=== PATIENT | female | born 1980 | race African-American/Black ===

== ENCOUNTER 2017-02-19 12:45 | Inpatient (IN) ==
--- NOTE | 2017-02-19 14:00 | Emergency Department Note ---
Arrival - Arrival Chief Complaint: Extremity Problem Stated Complaint: right leg pain ED Nursing Triage Note: REPORTS RIGHT LEG PAIN SINCE THIS MORNING. DENIES INJURY. DENIES NUMBNESS OR TINGLING. UNABLE TO PALPATER OR DOPPLER RIGHT DORSALIS PEDIS OR RIGHT POSTERIOR TIBIAL PULSE. RIGHT POPLITEAL PULSE AUSULTATED WITH DOPPLER AND RIGHT FOOT COOL TO TOUCH. LEFT DORSALIS PEDIS PULSE PALPABLE AND WARM TO TOUCH. LALA AT BEDSIDE REPORTS PT HAD SYNCOPE EPISODE FOR APPROX TWO SECONDS. PT ALERT AND ORIENTED AT TRIAGE Mode of Arrival: Stretcher Limitations: Altered Mental Status (Current cocaine abuser, currently having some withdrawal symptoms) Source: Patient, Old Records Reviewed, RN Notes Reviewed Time Seen by Provider: 02/19/17 13:18 - History of Present Illness HPI Narrative: 36-year-old black female presents to ED with chief complaint of right leg pain since Friday. Denies injury to the leg. Denies numbness or tingling. Her boyfriend is with her, he states she had a syncopal episode this a.m. for about 30 seconds. She has had one in the past that he knows of about 6 months ago. Patient is crack cocaine addict. Boyfriend states she has been gone for about 3 days, she has been using the cocaine on a heavy basis. Last use was last night. States she is going through some withdrawal symptoms. Patient is alert and oriented 3 at this time. Main complaint is the right leg pain. PCP is Dr. Mcdaniel. Significant previous medical history of hypertension, enlarged heart, insulin-dependent diabetes mellitus. She is poorly compliant with her medications. Date of Last Menstrual Period: 01/24/17 Allergies/Adverse Reactions: Allergies Allergy/AdvReac Type Severity Reaction Status Date / Time sulfamethoxazole Allergy RASH Verified 02/21/16 17:16 [From Bactrim] trimethoprim [From Bactrim] Allergy RASH Verified 02/21/16 17:16 Penicillins AdvReac Mild RASH Verified 02/19/17 12:56 Home Medications: Home Medications Medication Instructions Recorded Confirmed Type Insulin NPH [HumuLIN N] 10 unit SUBCUT BID 07/22/16 11/13/16 History Furosemide Tab [Lasix Tab] 20 mg PO BID DIURETIC #14 tablet 10/16/16 11/13/16 Rx Aspirin Chew Tab 81 mg PO DAILY #30 tablet 11/19/16 Rx Carvedilol [Coreg] 50 mg PO BID #120 tablet 11/19/16 Rx Levofloxacin Tab [Levaquin Tab] 750 mg PO Q48H #8 tablet 11/19/16 Rx amLODIPine [Norvasc] 10 mg PO BID #60 tablet 11/19/16 Rx cloNIDine TAB [Catapres Tab] 0.1 mg PO BID #60 tablet 11/19/16 Rx hydrALAZINE TAB [Apresoline Tab] 100 mg PO TID #90 tablet 11/19/16 Rx Review of System - Review of System 12 point system: reviewed and no additional remarkable complaints except as stated - Review of System Cardiovascular: Present: syncope Musculoskeletal: Present: leg pain Medical,Surgical,& Family Hx - Medical History Cardio: History of: CHF, Hypertension, Cardiovascular Problems (cardiomyopathy) Psychological: History of: Depression (undiagnosed), Psychiatric/Substance Abuse Tx Endocrine: History of: Diabetes Mellitus (IDDM) Rheumatology: History of;: Rheumatoid Arthritis Musculoskeletal: No history of: Amputation Hematology: No history of: Blood Transfusion Reaction Other: No history of: Anesthesia Reactions - Surgical History Cardiac Surgeries: Sugical HX of: Cardiac Catheterization (states done in february) Thoracic Surgeries: Patient denies;: Organ Transplant HEENT Surgeries: Patient denies: Thyroid Surgery Abdominal Surgeries: Patient denies: Abdominal Surgery Reproductive Surgeries: Surgical HX of;: Section, Tubal Ligation Patient denies;: Genitourinary Surgery - Family History Family History: Reports;: Family Diabetes (grandmother), Family Hypertension - Social History Smoking Status: Former smoker Frequency of Alcohol Use: None Type of Drug Use: Cocaine Exam Physical Examination: Exam - General General appearance: Alert, writhing in bed due to leg pain, appears to be in some drug withdrawal. - Head Head exam: Present: atraumatic, normocephalic - Eye Eye exam: Present: normal appearance, PERRL, normal ocular movement - ENT ENT exam: Present: Mucous membranes moist - Neck Neck exam: Present: normal inspection, full ROM - Chest Chest inspection: Present: normal inspection, symmetric chest wall rise - Respiratory Respiratory exam: Present: normal lung sounds bilaterally. Absent: rales, rhonchi, wheezes - Cardiovascular Cardiovascular exam: Present: regular rate, normal rhythm, normal heart sounds, no murmur - Extremities Exam Extremities exam: Present: Right lower extremity cool to touch, pulses not palpated in foot, pulses not auscultated with Doppler. Popliteal pulse is present. - Musculoskeletal: Present: Right leg pain, full range of motion. - Neurological Exam Neurological exam: Present: alert, oriented X3, normal coordination absent: motor sensory deficit - Psychiatric Psychiatric exam: Present: normal affect, normal mood, oriented to time, oriented to person, oriented to place, speech is normal, memory intact - Skin Skin exam: Present: warm, dry, intact, no rash, no growths, no abnormal pigmentation observed Vital Signs: Vital Signs Temperature 98.4 F 02/19/17 12:48 Pulse Rate 76 02/19/17 12:48 Respiratory Rate 20 02/19/17 12:48 Blood Pressure 124/87 02/19/17 12:48 O2 Sat by Pulse Oximetry 100 02/19/17 12:48 Course Course Narrative: 1615: Ultrasound here and getting arterial ultrasound. Unable to do CTA due to elevated creatinine. - Consultations Time: 14:40 (Dr. Chen in unit. Notified of pt presence and status. Orders received.) Time: 16:40 (Dr. Chen in unit. He talked to Dr. Feldman about pt. Will admit on Heparin.) Results - Labs CBC & BMP: 02/19/17 15:26 02/19/17 15:26 Lab Results: I have reviewed the patients labs Labs: Laboratory Tests 02/19/17 14:41 Urine Color Yellow Urine Appearance Slightly hazy Urine pH 7.0 Ur Specific [place] 1.015 Urine Protein >=500 Urine Glucose (UA) 150 Urine Ketones Negative Urine Blood Negative Urine Nitrate Negative Urine Bilirubin Negative Urine Urobilinogen < 2.0 H Urine Leukocytes Negative Urine WBC 2 Ur Squamous Epith Cells Occasional Amorphous Crystals Few Urine Mucus Occasional Ur Culture Indicated? Not indicated Urine Test Negative Laboratory Tests 02/19/17 14:41 Urine Opiates Screen Negative Ur Barbiturates Screen Negative Ur Phencyclidine Scrn Negative U Amphetamine/Methamph Negative U Benzodiazepines Scrn Negative U Cocaine Metab Screen Positive H U Cannabinoids Screen Negative - EKG EKG results: interpreted by ERMD - Impressions No STEMI - Diagnostic Findings Procedure: Ultrasound: report reviewed by me (High-grade partial occlusion of the distal right popliteal artery secondary to presumed embolus. There is trickle flow documented distal to this point in the posterior tibial artery.) Disposition Clinical Impression: Vasospasm of peripheral artery Disposition: Still a Patient Condition: Guarded Time of Disposition: 17:25
[2017-02-19 14:57] LABS: Amorphous Crystals,Urine Few /HPF (Few); Apearance,Urine Slightly Hazy (Clear); Bilirubin,Urine Negative (Negative); Blood, Urine Negative (Negative); Glucose,Urine (UA) 150 mg/dL (Negative); Ketones,Urine Negative (Negative); Mucus,Urine Occasional /LPF (Occasional); Nitrite,Urine Negative (Negative); Protein,Urine >=500 MG/DL; Squamous Epithelial Cell,Urine Occasional /HPF (0-10); Urine Color Yellow (Yellow); Urine Specific Gravity 1.015 (1.001-1.035); Urine Urobilinogen < 2.0 EU/DL (0.2-1.0); WBC,Urine 2 /HPF (0-6)
[2017-02-19] MEDS ORDERED: HEPARIN DRIP 25,000 UNITS/500 ML PREMIX IV SCH (15:00)
[2017-02-19 15:05] LABS: Barbiturates Screen,Urine Negative (Negative); Benzodiazepines Screen,Urine Negative (Negative); Cannabinoid Screen,Urine Negative (Negative); Opiate Screen,Urine Negative (Negative); Phencyclidine Screen,Urine Negative (Negative)
[2017-02-19 15:33] LABS: Basophils % 0.1 % (0.0-0.8); Eosinophils % 0.1 % (0.00-10.9); Hematocrit 39.3 VOL% (35.7-47.0); Hemoglobin 13.2 GM/DL (12.0-16.0); Immature Granulocytes % 0.3 %; Immature Granulocytes Absolute 0.04 #; Lymphocytes # 1.2 10*3/uL (1.4-4.0); Lymphocytes % 8.9 % (21.3-54.2); Mean Corpuscular HGB Conc 33.6 GM/DL (32-36); Mean Corpuscular Hemoglobin 26 PG (27-34); Mean Corpuscular Volume 78.4 FL (87-102); Mean Platelet Volume 11.5 FL (9.6-12.0); Monocytes # 0.8 10*3/uL (0.11-0.8); Monocytes % 6.2 % (1.7-12.7); Neutrophils # 10.9 10*3/uL (1.4-7.4); Neutrophils % 84.4 % (38.7-73.9); Platelet Count 215 T/CUMM (130-400); Red Blood Count 5.01 MC/CUMM (3.8-5.5); Red Cell Distribution Width 18.1 % (9.3-17.3); White Blood Count 12.9 T/CUMM (4-12)
[2017-02-19 15:42] LABS: PT Patient Result 10.4 SECS
[2017-02-19 15:50] LABS: Osmolality,Calculated 283.5 MOS/KG (273-304); Potassium 4.2 MMOL/L (3.5-5.1)
[2017-02-19] MEDS ORDERED: HEPARIN DRIP 25,000 UNITS/500 ML PREMIX IV ONE (16:11)
--- NOTE | 2017-02-19 16:56 | Ultrasound Report ---
History: Leg pain Date: 02/19/2017 Study: Ultrasound arterial duplex limited to the right leg Comparison exam: No previous similar Real-time ultrasound images are captured and archived. Grayscale, color Doppler, and pulse wave Doppler images are examined. There is normal flow, triphasic waveform, and velocity in the right common femoral, superficial femoral, and profunda femoris arteries. There is abnormal echogenic material compatible with embolus/thrombus in the distal right popliteal artery, with resulting high-grade partial occlusion over 70%. There is trickle flow documented within the right posterior tibial artery. Impression: High-grade partial occlusion of the distal right popliteal artery secondary to presumed embolus. There is trickle flow documented distal to this point in the posterior tibial artery. No significant disease at or superior to the mid popliteal artery level PROCEDURE INTERPRETED AT [facility] DEPARTMENT OF RADIOLOGY Final Report Signed by: Dr. Sharon Pratt
[2017-02-19] MEDS ORDERED: HEPARIN 1,000 UNIT/1 ML VIAL ONE (16:57)
[2017-02-19] MEDS ORDERED: HEPARIN 1,000 UNIT/1 ML VIAL IV STA (17:05)
[2017-02-19] MEDS ORDERED: ASPIRIN 325 MG TABLET ONE ×2 (17:08→18:47)
[2017-02-19] MEDS ORDERED: ASPIRIN CHEW 81 MG TABLET PO STA (17:11)
[2017-02-19] MEDS ORDERED: SODIUM CHLORIDE 0.9% 2,000 ML IV STA (17:20)
--- NOTE | 2017-02-19 17:29 | General Surg History&Physical ---
Assessment and Plan (1) Cocaine abuse Status: Acute Assessment and plan: This is most consistent with a cocaine induced vasospasm. Her signal in her foot has already returned but I think based on her arterial duplex studies the best thing to do would be to admit her and place her on a heparin drip as well as warm her foot and follow her pulse exams overnight. The patient has renal failure so we will not use contrast based imaging to evaluate her vasculature given the fact that her foot is not threatened and she does have a pulse in her foot and this appears most consistent with cocaine induced vasospasm. She has a normal vascular exam on her left foot which also makes vasospasm in this leg more likely but if she does not regain a normal vascular exam we will need to do some sort of imaging so we will go ahead and hydrate her in case she needs vascular imaging in the next couple days. Current Visit: No History of Present Illness Chief complaint: Right foot pain History of present illness: Ms. Corona is a 36 year old female who is presenting to the ER initially with right foot pain. She had increased velocity in her popliteal artery on the right leg but still had flow down into her posterior tibial artery and by the time I examined her she had artery regained pulses in her dorsalis pedis and was nontender in her foot. She does admit to using cocaine and has been treated here multiple times for cocaine induced vasospasm and tachycardia. Her labs show creatinine of 2.8 which is stable and white blood cell count was slightly elevated. Home Medications Medication Instructions Recorded Confirmed Type Insulin NPH [HumuLIN N] 10 unit SUBCUT BID 07/22/16 11/13/16 History Furosemide Tab [Lasix Tab] 20 mg PO BID DIURETIC #14 tablet 10/16/16 11/13/16 Rx Aspirin Chew Tab 81 mg PO DAILY #30 tablet 11/19/16 Rx Carvedilol [Coreg] 50 mg PO BID #120 tablet 11/19/16 Rx Levofloxacin Tab [Levaquin Tab] 750 mg PO Q48H #8 tablet 11/19/16 Rx amLODIPine [Norvasc] 10 mg PO BID #60 tablet 11/19/16 Rx cloNIDine TAB [Catapres Tab] 0.1 mg PO BID #60 tablet 11/19/16 Rx hydrALAZINE TAB [Apresoline Tab] 100 mg PO TID #90 tablet 11/19/16 Rx Allergies Allergy/AdvReac Type Severity Reaction Status Date / Time sulfamethoxazole Allergy RASH Verified 02/21/16 17:16 [From Bactrim] trimethoprim [From Bactrim] Allergy RASH Verified 02/21/16 17:16 Penicillins AdvReac Mild RASH Verified 02/19/17 12:56 Medical,Surgical,& Family Hx - Medical History Cardio: History of: CHF, Hypertension, Cardiovascular Problems (cardiomyopathy) Psychological: History of: Depression (undiagnosed), Psychiatric/Substance Abuse Tx Endocrine: History of: Diabetes Mellitus (IDDM), Diabetes Mellitus (NIDDM) Rheumatology: History of;: Rheumatoid Arthritis Musculoskeletal: No history of: Amputation Hematology: No history of: Blood Transfusion Reaction Other: No history of: Anesthesia Reactions - Surgical History Cardiac Surgeries: Sugical HX of: Cardiac Catheterization (states done in february) Thoracic Surgeries: Patient denies;: Organ Transplant HEENT Surgeries: Patient denies: Thyroid Surgery Abdominal Surgeries: Patient denies: Abdominal Surgery Reproductive Surgeries: Surgical HX of;: Section, Tubal Ligation Patient denies;: Genitourinary Surgery - Family History Family History: Reports;: Family Diabetes (grandmother), Family Hypertension - Social History Smoking Status: Former smoker Frequency of Alcohol Use: None Type of Drug Use: Cocaine Exam - Constitutional Vitals: Period Temp Pulse Resp BP Sys/Dominguez Pulse Ox Last 24 Hr 98.4 F 76 20 124/87 100 General appearance: normal weight, no acute distress - Head Head exam: Present: normal inspection, normocephalic - Eye Eye exam: Present: EOMI Pupils: Present: GERMAN - ENT ENT exam: Present: normal exam Mouth exam: Present: normal external inspection, normal voice - Neck Neck exam: Present: normal inspection, trachea midline - Respiratory Respiratory exam: Present: clear to auscultation bilaterally. Absent: accessory muscle use, chest wall tenderness - Cardiovascular Cardiovascular exam: Present: RRR. Absent: systolic murmur, tachycardia - GI/Abdominal GI/Abdominal exam: Present: soft. Absent: tenderness, rebound - Extremities Exam Extremities exam: Present: other (The right foot is slightly cool to the touch but it is neurovascularly intact with a audible dorsalis pedis pulse but no posterior tibial pulses audible on Doppler. The neurologic exam is normal in the right foot and has normal strength and sensation.) - Back Exam Back exam: Present: normal inspection - Neurological Exam Neurological exam: Present: alert, oriented X3 Speech: Present: normal - Skin Skin exam: Present: normal color, warm - Constitutional Constitutional: Present: as per HPI - EENT Nose, mouth and throat: Present: as per HPI - Cardiovascular Cardiovascular: Present: as per HPI - Respiratory Respiratory: Present: as per HPI - Gastrointestinal Gastrointestinal: Present: as per HPI - Genitourinary Genitourinary: Present: as per HPI - Musculoskeletal Musculoskeletal: Present: as per HPI - Neurological Neurological: Present: as per HPI - Endocrine Endocrine: Present: as per HPI Hematologic/Lymphatic: Present: as per HPI Results - Labs CBC & BMP: 02/19/17 15:26 02/19/17 15:26
[2017-02-19] MEDS ORDERED: ASPIRIN 325 MG TABLET PO STA (19:07)
--- NOTE | 2017-02-19 19:26 | XRay Report ---
XR chest 1V portable Indication: Central line placement Comparison: Chest x-ray 11/16/2016 Technique: Portable AP chest was performed. Findings: Improved aeration of the right lung base is noted with minimal residual airspace opacification within the right cardiophrenic angle. Right IJ central venous catheter terminates within the superior vena cava. The chest is otherwise stable. Impression: 1. Line placement as detailed. 2. Improved appearance of the right lower lung. 02/19/2017 7:22 PM PROCEDURE INTERPRETED AT [facility] DEPARTMENT OF RADIOLOGY Final Report Signed by: Dr. Monroe Dickey
--- NOTE | 2017-02-19 19:47 | Operative Note ---
Date of procedure: 02/19/17 Pre-op diagnosis: Inadequate venous access Post-op diagnosis: same Procedure: Preoperative diagnosis Hypotension with inadequate venous access Postoperative diagnosis Same Procedures performed Right internal jugular central line placement Ultrasound guidance and interpretation of images Findings The right internal jugular vein was compressible and was accessed on first stick with venous nonpulsatile blood return. Wire placement was confirmed with ultrasound and the vein was accessed under ultrasound guidance. The catheter was placed at 15 centimeters at the skin level. Complications None apparent Specimen None Anesthesia Local 10 cc lidocaine Indication Hypotension with inadequate venous access Description of procedure The patient was placed in supine position in his ICU bed. The neck was prepped with chlorhexidine and draped sterilely. Timeout was called. Ultrasound was used to identify the vascular structures in the right neck. The jugular vein is compressible. Local anesthetic was administered under ultrasound guidance. The vein was accessed with a needle on the first attempt under ultrasound guidance. Venous nonpulsatile blood return was obtained. A wire was passed easily into the venous system and placement was confirmed again with ultrasound. A skin incision was made alongside the wire and the dilator was placed over the wire. Seldinger technique was used to place a triple-lumen catheter and it was threaded over the wire up to 15 centimeters at the skin. The catheter was sewn in place at this location. All 3 lm returned blood easily and were flushed with saline. The catheter was sewn in place with 3-0 silk sutures in a Biopatch sterile dressing was placed with Tegaderm. Postoperative plan Chest x-ray Implants: triple lumen catheter Anesthesia: local Surgeon / Physician: Huey Chen Estimated blood loss: minimal Specimens: none sent Condition: stable Disposition: no change Results - Labs CBC & BMP: 02/19/17 15:26 02/19/17 15:26 Discharge Plan - Discharge Medications No Action Insulin NPH [HumuLIN N] 10 unit SUBCUT BID Furosemide Tab [Lasix Tab] 20 mg PO BID DIURETIC #14 tablet cloNIDine TAB [Catapres Tab] 0.1 mg PO BID #60 tablet Aspirin Chew Tab 81 mg PO DAILY #30 tablet hydrALAZINE TAB [Apresoline Tab] 100 mg PO TID #90 tablet Carvedilol [Coreg] 50 mg PO BID #120 tablet Levofloxacin Tab [Levaquin Tab] 750 mg PO Q48H #8 tablet amLODIPine [Norvasc] 10 mg PO BID #60 tablet - Follow Up or Referral - Forms/Instructions
[2017-02-19] MEDS ORDERED: DEXTROSE 50% 25 GM/50 ML VIAL IV PRN (21:44)
[2017-02-19] MEDS ORDERED: ACETAMINOPHEN 325 MG TABLET PO PRN (21:44)
[2017-02-19] MEDS ORDERED: GLUCAGON 1 MG VIAL IM PRN (21:44)
[2017-02-19] MEDS ORDERED: ONDANSETRON 4 MG/2 ML VIAL IV PRN (21:44)
[2017-02-19] MEDS ORDERED: PROMETHAZINE 25 MG/1 ML VIAL IM PRN (21:44)
[2017-02-19] MEDS: SODIUM CHLORIDE 0.9% 1,000 ML IV SCH (23:00)
[2017-02-20] MEDS: INSULIN REGULAR 100 UNIT/ML SUBCUT SCH ×5 (01:07→21:35)
[2017-02-20 06:47] LABS: Basophils % 0.2 % (0.0-0.8); Eosinophils % 0.1 % (0.00-10.9); Hematocrit 36.5 VOL% (35.7-47.0); Immature Granulocytes % 0.8 %; Immature Granulocytes Absolute 0.07 #; Lymphocytes % 21.6 % (21.3-54.2); Mean Corpuscular HGB Conc 32.9 GM/DL (32-36); Mean Corpuscular Hemoglobin 26 PG (27-34); Mean Corpuscular Volume 80.2 FL (87-102); Mean Platelet Volume 12.2 FL (9.6-12.0); Monocytes # 0.6 10*3/uL (0.11-0.8); Monocytes % 6.5 % (1.7-12.7); Neutrophils # 6.4 10*3/uL (1.4-7.4); Neutrophils % 70.8 % (38.7-73.9); Platelet Count 179 T/CUMM (130-400); Red Blood Count 4.55 MC/CUMM (3.8-5.5); Red Cell Distribution Width 18.1 % (9.3-17.3)
[2017-02-20 07:20] LABS: Calcium 8.1 MG/DL (8.5-10.1); Osmolality,Calculated 292.1 MOS/KG (273-304); Potassium 4.1 MMOL/L (3.5-5.1)
--- NOTE | 2017-02-20 08:09 | EKG Report ---
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
[2017-02-20] MEDS: PANTOPRAZOLE 40 MG TABLET PO SCH (08:56)
[2017-02-20] MEDS ORDERED: ASPIRIN CHEW 81 MG TABLET PO SCH (09:00)
[2017-02-20] MEDS ORDERED: HEPARIN DRIP 25,000 UNITS/500 ML PREMIX IV SCH (10:30)
--- NOTE | 2017-02-20 12:15 | General Surgery Progress Note ---
Assessment and Plan (1) Cocaine abuse Status: Acute Assessment and plan: The patient is doing well and she has regained pulses in her right foot. This was probably cocaine induced vasospasm. We will follow-up her labs today but I think she can probably transition to an oral antiplatelet agent such as aspirin wound and monitored for another day and discharge home tomorrow if she still doing well. Current Visit: No Subjective Patient reports: Present: no new complaints, feels better, afebrile Narrative: The patient regained pulses in her foot last night. She has no new complaints this morning. She is on a heparin drip and her PTT is in the therapeutic range. Exam - Constitutional Vitals: Period Temp Pulse Resp BP Sys/Dominguez Pulse Ox Last 24 Hr 98.4 F-98.6 F 75-84 18-20 124-181/83-99 97-100 General appearance: normal weight, no acute distress - Head Head exam: Present: normal inspection, normocephalic - Eye Eye exam: Present: EOMI Pupils: Present: GERMAN - ENT ENT exam: Present: normal exam Mouth exam: Present: normal external inspection, normal voice - Neck Neck exam: Present: normal inspection, trachea midline - Respiratory Respiratory exam: Present: clear to auscultation bilaterally. Absent: accessory muscle use, chest wall tenderness - Cardiovascular Cardiovascular exam: Present: RRR. Absent: systolic murmur, tachycardia - GI/Abdominal GI/Abdominal exam: Present: soft. Absent: tenderness, rebound - Extremities Exam Extremities exam: Present: normal inspection, normal capillary refill, other ( There is a palpable pulse in both feet this morning. Both feet are warm and the right foot coolness and color change has resolved.) - Back Exam Back exam: Present: normal inspection - Neurological Exam Neurological exam: Present: alert, oriented X3 Speech: Present: normal - Skin Skin exam: Present: normal color, warm Results - Labs CBC & BMP: 02/19/17 15:26 02/19/17 15:26 Quality Measures - VTE Contraindication to Pharmacological VTE Prophylaxis: Already on Theraputic Agent , No Prophylaxis Needed
[2017-02-20] MEDS: SODIUM CHLORIDE 0.9% 1,000 ML IV SCH (13:09)
[2017-02-20] MEDS ORDERED: HEPARIN LOCK FLUSH 500 UNIT/5 ML SYRINGE IV PRN (16:37)
[2017-02-20] MEDS: amLODIPine 10 MG TABLET PO SCH (22:35)
[2017-02-20] MEDS: cloNIDine 0.1 MG TABLET PO SCH (22:35)
[2017-02-21] MEDS: CARVEDILOL 25 MG TABLET PO SCH ×2 (00:22→09:08)
[2017-02-21 05:00] LABS: Calcium 8.1 MG/DL (8.5-10.1); Magnesium 1.9 MG/DL (1.8-2.4); Osmolality,Calculated 285.4 MOS/KG (273-304); Potassium 3.8 MMOL/L (3.5-5.1)
[2017-02-21] MEDS ORDERED: ASPIRIN 325 MG TABLET PO SCH (09:00)
[2017-02-21] MEDS: INSULIN REGULAR 100 UNIT/ML SUBCUT SCH ×2 (09:08→13:56)
[2017-02-21] MEDS: PANTOPRAZOLE 40 MG TABLET PO SCH (09:08)
[2017-02-21] MEDS: amLODIPine 10 MG TABLET PO SCH (09:08)
[2017-02-21] MEDS: cloNIDine 0.1 MG TABLET PO SCH (09:08)
--- NOTE | 2017-02-21 10:15 | General Surgery Progress Note ---
Assessment and Plan (1) Cocaine abuse Status: Acute Assessment and plan: The patient had developed some vasospasm in her right leg vasculature but this has resolved completely clinically. I do not think that the risk of contrast based studies is worth the benefit given the fact that her history and exam massive with vasospasm and a completely resolved and she now has a normal vascular exam. We did discuss cessation of cocaine use and the risks of cocaine use. The patient will be discharged home today on a full dose aspirin and she was instructed to come back to the ER immediately for recurrent right foot pain. I do not necessarily think the patient has to come back to follow- up with me but told her I be happy to see her back if there are any issues that arise peer Current Visit: No Subjective Patient reports: Present: no new complaints, afebrile Narrative: The patient is not having any pain in her right foot. She is up walking around without difficulty. Her room smells like cigarette smoke and the nurses are suspicious that she has been smoking in her room. Exam - Constitutional Vitals: Period Temp Pulse Resp BP Sys/Dominguez Pulse Ox Last 24 Hr 97.9 F-99.8 F 64-77 18-22 147-231/76-114 97-98 General appearance: normal weight, no acute distress - Head Head exam: Present: normal inspection, normocephalic - Eye Eye exam: Present: EOMI Pupils: Present: GERMAN - ENT ENT exam: Present: normal exam Mouth exam: Present: normal external inspection, normal voice - Neck Neck exam: Present: normal inspection, trachea midline - Respiratory Respiratory exam: Present: clear to auscultation bilaterally. Absent: accessory muscle use, chest wall tenderness - Cardiovascular Cardiovascular exam: Present: RRR. Absent: systolic murmur, tachycardia - GI/Abdominal GI/Abdominal exam: Present: soft. Absent: tenderness, rebound - Extremities Exam Extremities exam: Present: normal inspection, normal capillary refill, other ( Palpable pulses in both feet. Normal vascular exam bilaterally.) - Back Exam Back exam: Present: normal inspection - Neurological Exam Neurological exam: Present: alert, oriented X3 Speech: Present: normal - Skin Skin exam: Present: normal color, warm Results - Labs CBC & BMP: 02/20/17 04:00 02/21/17 03:56 Quality Measures - VTE Contraindication to Pharmacological VTE Prophylaxis: Already on Theraputic Agent , No Prophylaxis Needed
--- NOTE | 2017-02-21 12:24 | Discharge Summary ---
Hospital Course - Hospital Course Hospital Course: The patient is a 36-year-old female insulin-dependent diabetic and CKD with known cocaine abuse who presented to the emergency department with right foot pain. 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 She required central line placement for venous access due to hypotension. She regained full, strong pulses in her right foot after initially being treated with heparin drip. She was transitioned to antiplatelet therapy with full dose aspirin. On the day of discharge, her foot exam was benign and her renal function was at baseline. Patient was discharged home in good condition with no complications to note. Diagnosis - Discharge Diagnosis (1) Insulin dependent diabetes mellitus Status: Acute (2) Vasospasm of peripheral artery Status: Acute (3) Cocaine abuse Status: Acute (4) Renal insufficiency Status: Resolved Discharge Plan - Discharge Data Disposition: Disch To Home/Self Care Condition at Discharge: Stable Discharge Diet: diabetic diet Activity: resume usual activities as tolerated Contact your physician if you experience:: pain uncontrolled by pain medications - Discharge Medications New Aspirin Tab 325 mg PO DAILY tablet Continue Insulin NPH [HumuLIN N] 10 unit SUBCUT BID Furosemide Tab [Lasix Tab] 20 mg PO BID DIURETIC #14 tablet cloNIDine TAB [Catapres Tab] 0.1 mg PO BID #60 tablet hydrALAZINE TAB [Apresoline Tab] 100 mg PO TID #90 tablet Carvedilol [Coreg] 50 mg PO BID #120 tablet Levofloxacin Tab [Levaquin Tab] 750 mg PO Q48H #8 tablet amLODIPine [Norvasc] 10 mg PO BID #60 tablet Discontinued Aspirin Chew Tab 81 mg PO DAILY #30 tablet - Follow Up or Referral - Forms/Instructions Instructions: Cocaine Abuse (DC) Additional Discharge Instructions: F/u Psych Dr. Anastacio Ward 02/25/2017 @ 0800. Exam - Constitutional Vitals: Period Temp Pulse Resp BP Sys/Dominguez Pulse Ox Last 24 Hr 97.4 F-99.8 F 64-77 18-22 147-231/76-114 96-98 General appearance: no acute distress - Head Head exam: Present: normocephalic - Eye Eye exam: Absent: conjunctival injection, scleral icterus - Respiratory Respiratory exam: Present: clear to auscultation bilaterally - Cardiovascular Cardiovascular exam: Present: regular rate and rhythm - GI/Abdominal GI/Abdominal exam: Present: normal bowel sounds, soft. Absent: tenderness - Extremities Exam Extremities exam: Present: other (BIlateral feet with equal PT and DP pedal pulses. No open wounds.) - Neurological Exam Neurological exam: Present: alert, oriented X3 - Psychiatric Psychiatric exam: Present: normal affect, normal mood - Skin Skin exam: Present: normal color, warm Discharge Results Labs on day of discharge: Labs from last 24 hours 02/21/17 02/21/17 02/21/17 08:54 03:56 03:42 Circ Anticoag PTT Sodium 140 Potassium 3.8 Chloride 109 H Carbon Dioxide 21 Anion Gap 13.8 BUN 21 H Creatinine 2.70 H GFR Calculation 26 BUN/Creatinine Ratio 7.00 Glucose 163 H POC Glucose 190 H 167 H Calculated Osmolality 285.4 Calcium 8.1 L Magnesium 1.9 02/20/17 02/20/17 02/20/17 19:56 16:34 16:20 Circ Anticoag PTT 52.6 H Sodium Potassium Chloride Carbon Dioxide Anion Gap BUN Creatinine GFR Calculation BUN/Creatinine Ratio Glucose POC Glucose 178 H 242 H Calculated Osmolality Calcium Magnesium 02/20/17 12:59 Circ Anticoag PTT Sodium Potassium Chloride Carbon Dioxide Anion Gap BUN Creatinine GFR Calculation BUN/Creatinine Ratio Glucose POC Glucose 217 H Calculated Osmolality Calcium Magnesium - Imaging and Cardiology Procedure: Chest x-ray: image reviewed by me, report reviewed by me, Ultrasound : report reviewed by me (arterial doppler) DS: Provider Date of admission: 02/19/17 17:21 Primary care physician: . No PCP Attending physician on admission: Huey Chen MD Consults: 02/19/17 23:17 Consult to Pastoral Services [CONS] Routine Comment: Pastoral Screen: Request Lock[employer]ch [employer]ining [employer] Visit Pastoral Screen Source of Request: Other Other Source Requesting: Nursing Discharging clinician: Sarah Sanders PA-C
[2017-02-21 14:11] VITALS: BP 125/85
== END 2017-02-21 14:18 | disposition home or self-care (01) | DRG 816 ==
LOC: EDUNIT# → EDBD → N.ED 12:45 → N.EDINP 17:21 → N.4E 19:46
PROVIDERS: ADMIT Surgery; ATTEND Surgery

== ENCOUNTER 2017-04-23 09:28 | Inpatient (IN) ==
[2017-04-23] MEDS ORDERED: cloNIDine 0.1 MG TABLET PO STA (10:47)
[2017-04-23] MEDS ORDERED: cloNIDine 0.1 MG TABLET ONE (10:50)
[2017-04-23] MEDS ORDERED: NITROGLYCERIN 2% OINT 1 INCH/GM PACK TOP STA (11:04)
[2017-04-23] MEDS ORDERED: SODIUM CHLORIDE 0.9% 500 ML IV STA (11:07)
[2017-04-23] MEDS ORDERED: ONDANSETRON 4 MG/2 ML VIAL IV STA (11:07)
[2017-04-23] MEDS ORDERED: NITROGLYCERIN 2% OINT 1 INCH/GM PACK TOP ONE (11:08)
[2017-04-23] MEDS ORDERED: hydrALAZINE 20 MG/1 ML VIAL IV STA (11:16)
[2017-04-23] MEDS ORDERED: ONDANSETRON 4 MG/2 ML VIAL ONE ×2 (11:19→11:26)
[2017-04-23] MEDS ORDERED: hydrALAZINE 20 MG/1 ML VIAL ONE (11:19)
--- NOTE | 2017-04-23 11:19 | Emergency Department Note ---
Layne Renae Mantricia, am scribing for, and in the presence of, Rolando Moreno MD 11:06. Josh Renae Charles R, MD, personally performed the services described in this documentation, ascribed by Jose Tillman in my presence, and it is both accurate and complete . Arrival - Arrival Chief Complaint: Nausea/Vomiting/Diarrhea Stated Complaint: THROWING UP ED Nursing Triage Note: c/o vomiting and shaking onset yesterday afternoon. states she is cold. Mode of Arrival: Wheelchair Limitations: No Limitations Source: Patient Time Seen by Provider: 04/23/17 10:18 - History of Present Illness HPI Narrative: Pt is a 37 y/o black female arriving to ED with c/o vomiting and shaking that onset yesterday. After prying, pt admits to snorting cocaine yesterday. She also admits that she has consumed cocaine before and has had this sickness afterwards every time. She denies any chest pain and SOB. At time of exam, pt's blood pressure is 207/177. She denies being due to her tubular ligation. No other complaints were reported to ED. Onset (ago): hour(s) Consistency: constant Severity: mild Date of Last Menstrual Period: last month Allergies/Adverse Reactions: Allergies Allergy/AdvReac Type Severity Reaction Status Date / Time sulfamethoxazole Allergy RASH Verified 02/21/16 17:16 [From Bactrim] trimethoprim [From Bactrim] Allergy RASH Verified 02/21/16 17:16 Penicillins AdvReac Mild RASH Verified 02/19/17 12:56 Home Medications: Home Medications Medication Instructions Recorded Confirmed Type Insulin NPH [HumuLIN N] 15 unit SUBCUT BID 07/22/16 04/23/17 History Atorvastatin [Lipitor] 80 mg PO DAILY 03/07/17 04/23/17 History amLODIPine [Norvasc] 10 mg PO DAILY 03/07/17 04/23/17 History hydroCHLOROthiazide [Microzide] 12.5 mg PO BID 03/07/17 04/23/17 History hydrALAZINE TAB [Apresoline Tab] 50 mg PO TID tablet 03/18/17 04/23/17 Rx cloNIDine HCl [Clonidine HCl] 0.3 mg PO TID 04/23/17 04/23/17 History Review of System - Review of System 12 point system: reviewed and no additional remarkable complaints except as stated - Review of System Constitutional: Present: chills, other (shakes). Absent: diaphoresis, fever Respiratory: Absent: cough Cardiovascular: Absent: chest pain, dyspnea on exertion Gastrointestinal: Present: nausea, vomiting. Absent: abdominal pain, diarrhea Musculoskeletal: Absent: arm pain, back pain, leg pain, neck pain Medical,Surgical,& Family Hx - Medical History Cardio: History of: CHF, Hypertension, Cardiovascular Problems (cardiomyopathy) Psychological: History of: Anxiety Disorders, Behavior Problems, Bipolar Disorder (age 18), Depression (undiagnosed), Psychiatric/Substance Abuse Tx Neurology: History of: Cerebrovascular Accident (january 2017), TIA Endocrine: History of: Diabetes Mellitus (IDDM), Diabetes Mellitus (NIDDM) Rheumatology: History of;: Rheumatoid Arthritis Genitourinary: History of: Bladder Problem (incontinent) Musculoskeletal: No history of: Amputation Hematology: No history of: Blood Transfusion Reaction Other: No history of: Anesthesia Reactions - Surgical History Cardiac Surgeries: Sugical HX of: Cardiac Catheterization (states done in february) Thoracic Surgeries: Patient denies;: Organ Transplant HEENT Surgeries: Patient denies: Thyroid Surgery Abdominal Surgeries: Patient denies: Abdominal Surgery Reproductive Surgeries: Surgical HX of;: Section, Tubal Ligation Patient denies;: Genitourinary Surgery - Family History Family History: Reports;: Family Diabetes (grandmother), Family Hypertension - Social History Smoking Status: Former smoker Frequency of Alcohol Use: None Type of Drug Use: None Exam Vital Signs: Vital Signs Temperature 97.6 F 04/23/17 09:35 Pulse Rate 118 H 04/23/17 11:30 Respiratory Rate 15 04/23/17 11:30 Blood Pressure 203/128 04/23/17 11:30 O2 Sat by Pulse Oximetry 100 04/23/17 11:30 - General General appearance: alert, in no apparent distress - Head Head exam: Present: atraumatic, normocephalic, normal inspection - Eye Eye exam: Present: normal appearance, PERRL, EOMI - ENT ENT exam: Present: normal exam, normal oropharynx, mucous membranes moist, TM's normal bilaterally, normal external ear exam - Neck Neck exam: Present: normal inspection, full ROM, trachea midline. Absent: tenderness - Chest Chest inspection: Present: normal inspection, symmetric chest wall rise. Absent : tenderness - Respiratory Respiratory exam: Present: rhonchi - Cardiovascular Cardiovascular exam: Present: normal rhythm, tachycardia, normal heart sounds - Abdominal Exam Abdominal exam: Present: soft, normal bowel sounds. Absent: distention, tenderness, guarding, rebound - Extremities Exam Extremities exam: Present: full ROM, normal capillary refill, other (+1 pitting edema LE bilat). Absent: tenderness - Back Exam Back exam: Present: normal inspection, full ROM. Absent: tenderness - Neurological Exam Neurological exam: Present: alert, oriented X3, CN II-XII intact, normal gait, reflexes normal - Psychiatric Psychiatric exam: Present: normal affect, normal mood - Skin Skin exam: Present: warm, dry, intact, normal color Course - Consultations Consultation #1: Hospitalist will admit patient Time: 13:09 Results - Labs CBC & BMP: 04/23/17 13:13 04/23/17 10:57 Lab Results: I have reviewed the patients labs - Diagnostic Findings Procedure: Chest x-ray: report reviewed by me (No acute cardiopulmonary disease. ), CT: report reviewed by me (Head: No evidence of acute process or acute infarct) Critical Care Time Critical Care Time: Yes Total Critical Care Time: 60 Disposition Clinical Impression: Gastroenteritis, Hypertensive crisis, Drug abuse, Uncontrolled hypertension, Cocaine abuse, Elevated troponin, Renal insufficiency, Cardiomyopathy, Cocaine intoxication Case discussed with: patient Condition: Guarded Time of Disposition: 13:37
--- NOTE | 2017-04-23 11:20 | EKG Report ---
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
--- NOTE | 2017-04-23 11:49 | XRay Report ---
XR chest 1V portable Indication: Hypertensive urgency Comparison: 19 Feb 2017 Findings: The heart and mediastinum are stable in size and configuration. The pulmonary vascularity is normal in caliber. No lung infiltrates, effusions, pneumothorax or other abnormality is demonstrated. Impression: No acute cardiopulmonary disease. PROCEDURE INTERPRETED AT [facility] DEPARTMENT OF RADIOLOGY Final Report Signed by: Dr. Ricardo Jarvis
--- NOTE | 2017-04-23 11:50 | XRay Report ---
XR abdomen 2V Indication: Abdominal pain Comparison: None available Findings: No free fluid or free air seen. The bowel gas pattern appears within normal limits. No abnormal calcifications are present. No other abnormality is identified. Impression: No evidence of abnormality demonstrated PROCEDURE INTERPRETED AT [facility] DEPARTMENT OF RADIOLOGY Final Report Signed by: Dr. Ricardo Jarvis
--- NOTE | 2017-04-23 12:09 | CT Report ---
CT brain Indication: Headache, nausea vomiting Comparison: 22 Feb 2017 Technique: Axial CT imaging of the brain is performed without contrast with 3 mm increments. Findings: No evidence of hemorrhage, mass mass effect midline shift or acute infarct seen. There is decreased density in the left anterior basal ganglia, similar findings were present on the previous exam. Remaining brain parenchyma attenuation and differentiation appears within normal limits. The ventricles and cisterns are normal in caliber. No cranial or skull base abnormality is identified. Impression: No evidence of acute process or acute infarct demonstrated. This CT exam was performed using one or more the following dose reduction techniques: Automated exposure control, adjustment of the MA and/or KV according to patient size, or use of iterative reconstruction technique. PROCEDURE INTERPRETED AT [facility] DEPARTMENT OF RADIOLOGY Final Report Signed by: Dr. Ricardo Jarvis
[2017-04-23 12:38] LABS: Alanine Aminotransferase 22 U/L (13-56); Albumin 3.6 G/DL (3.4-5.0); Alkaline Phosphatase 145 U/L (45-117); Amylase 68 U/L (25-115); Aspartate Amino Transferase 22 U/L (0-37); Bilirubin,Total < 0.39 MG/DL (0.2-1.0); Blood Urea Nitrogen 30 MG/DL (7-18); Calcium 10.1 MG/DL (8.5-10.1); Glucose 211 MG/DL (74-106); Magnesium 2.2 MG/DL (1.8-2.4); Osmolality,Calculated 279.2 MOS/KG (273-304); Potassium 4.2 MMOL/L (3.5-5.1); Sodium 134 MMOL/L (136-145)
[2017-04-23 12:45] LABS: Amorphous Crystals,Urine Occasional /HPF (Few); Apearance,Urine CLOUDY (Clear); Bacteria,Urine Occasional /HPF (Few); Bilirubin,Urine Negative (Negative); Blood, Urine Negative (Negative); Glucose,Urine (UA) 50 mg/dL (Negative); Ketones,Urine Negative (Negative); Nitrite,Urine Negative (Negative); Protein,Urine >=500 MG/DL; RBC,Urine 28 /HPF (0-4); Squamous Epithelial Cell,Urine Occasional /HPF (0-10); Urine Color Yellow (Yellow); Urine Specific Gravity 1.015 (1.001-1.035); Urine Urobilinogen < 2.0 EU/DL (0.2-1.0)
[2017-04-23 12:46] LABS: Troponin I Only 0.084 NG/ML (0.00-0.045)
[2017-04-23 13:02] LABS: Barbiturates Screen,Urine Negative (Negative); Benzodiazepines Screen,Urine Negative (Negative); Cannabinoid Screen,Urine Negative (Negative); Opiate Screen,Urine Negative (Negative); Phencyclidine Screen,Urine Negative (Negative)
[2017-04-23 13:30] LABS: Basophils % 0.2 % (0.0-0.8); Hematocrit 38.8 VOL% (35.7-47.0); Hemoglobin 12.7 GM/DL (12.0-16.0); Immature Granulocytes % 0.3 %; Immature Granulocytes Absolute 0.03 #; Lymphocytes # 1.2 10*3/uL (1.4-4.0); Lymphocytes % 10.6 % (21.3-54.2); Mean Corpuscular HGB Conc 32.7 GM/DL (32-36); Mean Corpuscular Hemoglobin 26 PG (27-34); Mean Corpuscular Volume 80.5 FL (87-102); Monocytes # 0.5 10*3/uL (0.11-0.8); Monocytes % 4.3 % (1.7-12.7); Neutrophils # 9.6 10*3/uL (1.4-7.4); Neutrophils % 84.6 % (38.7-73.9); Platelet Count 270 T/CUMM (130-400); Red Blood Count 4.82 MC/CUMM (3.8-5.5); Red Cell Distribution Width 15.5 % (9.3-17.3); White Blood Count 11.4 T/CUMM (4-12)
--- NOTE | 2017-04-23 14:02 | Hospitalist History & Physical ---
Assessment and Plan (1) Elevated troponin Status: Acute Assessment and plan: Troponin was noted at 0.084. We will conduct a cardiac workup will obtain serial cardiac enzymes. If positive, we will consult cardiology to evaluate and assist. Current Visit: Yes (2) Hypertensive crisis Status: Acute Assessment and plan: The patient was grossly hypertensive at the time of ED presentation, blood pressure was noted at 237/169. The patient was given multiple antihypertensive agents in the ED however the patient's blood pressure failed to improve and is now noted at 203/128. We will start the patient on a Cardene drip. The patient will be admitted to the critical care setting. Current Visit: Yes (3) Insulin dependent diabetes mellitus Status: Acute Assessment and plan: She reports that she is largely noncompliant with her medications. We will obtain a hemoglobin A1c and start Accu-Cheks with sliding scale coverage. Current Visit: No (4) Cocaine intoxication Status: Acute Assessment and plan: The patient had positive findings of cocaine urine drug toxicology at the time of ED presentation. The patient reports a long history of cocaine abuse. She does not report any desire to refrain from these activities. Current Visit: Yes History of Present Illness Chief complaint: Nausea, vomiting, diarrhea History of present illness: This is a 37-year-old female that presented to the ED at [facility] this morning for the evaluation of nausea, vomiting, and diarrhea. Patient has a medical history significant for diabetes mellitus, dyslipidemia, hypertension, bipolar disease, anxiety, cerebrovascular accident, transient ischemic attack, rheumatoid arthritis, and bladder incontinence. Patient has a surgical history of cardiac catheterization. The patient reported the onset of symptoms 1 day prior to presentation. Upon much encouragement, the patient reluctantly reported use of cocaine on yesterday. She reports that she has experience similar to the above each time she uses cocaine. After her symptoms continue to persist, the patient's mother brought her to the ED at [facility] for further evaluation. At the time of ED presentation, the patient was noted to be grossly hypertensive with a blood pressure of 207/177. Multiple antihypertensive agents were initiated at that time; with minimal relief. Labs were obtained; complete blood count reported white blood cell count 11.4, hemoglobin 12.7, hematocrit 38.8, and platelet count 270. Comprehensive metabolic profile reported sodium at 134, potassium 4.2, chloride 101, carbon dioxide 23, anion gap 14.2, BUN 30, creatinine 2.30, glucose 211, calcium 10.1, magnesium 2.2, total bilirubin less than 0.39, AST 22, ALT 22, alkaline phosphatase 145, CK-MB 3.4, total creatine kinase 151, troponin 0.084, and lipase 125. Urinalysis was essentially unremarkable; however urine toxicology reported positive findings for cocaine and serum alcohol was noted at less than 15. CT head without contrast was unremarkable for any acute process or any acute infarction intracranially.Abdominal x-ray reported no evidence of abnormality. Chest x- ray was unremarkable for any acute cardiopulmonary disease. After brief discussion with both Dr. Moreno and Dr. Acevedo, the patient will be admitted to the hospitalist service for continuation of care. Due to the gross hypertension, the patient will be placed in the critical care setting for close observation. Home medications have been reviewed and reconciled. CODE STATUS discussed; patient is a Full Code. Home Medications Medication Instructions Recorded Confirmed Type Insulin NPH [HumuLIN N] 15 unit SUBCUT BID 07/22/16 04/23/17 History Atorvastatin [Lipitor] 80 mg PO DAILY 03/07/17 04/23/17 History amLODIPine [Norvasc] 10 mg PO DAILY 03/07/17 04/23/17 History hydroCHLOROthiazide [Microzide] 12.5 mg PO BID 03/07/17 04/23/17 History hydrALAZINE TAB [Apresoline Tab] 50 mg PO TID tablet 03/18/17 04/23/17 Rx cloNIDine HCl [Clonidine HCl] 0.3 mg PO TID 04/23/17 04/23/17 History Allergies Allergy/AdvReac Type Severity Reaction Status Date / Time sulfamethoxazole Allergy RASH Verified 02/21/16 17:16 [From Bactrim] trimethoprim [From Bactrim] Allergy RASH Verified 02/21/16 17:16 Penicillins AdvReac Mild RASH Verified 02/19/17 12:56 Medical,Surgical,& Family Hx - Medical History Cardio: History of: CHF, Hypertension, Cardiovascular Problems (cardiomyopathy) Psychological: History of: Anxiety Disorders, Behavior Problems, Bipolar Disorder (age 18), Depression (undiagnosed), Psychiatric/Substance Abuse Tx Neurology: History of: Cerebrovascular Accident (january 2017), TIA Endocrine: History of: Diabetes Mellitus (IDDM), Diabetes Mellitus (NIDDM) Rheumatology: History of;: Rheumatoid Arthritis Genitourinary: History of: Bladder Problem (incontinent) Musculoskeletal: No history of: Amputation Hematology: No history of: Blood Transfusion Reaction Other: No history of: Anesthesia Reactions - Surgical History Cardiac Surgeries: Sugical HX of: Cardiac Catheterization (states done in february) Thoracic Surgeries: Patient denies;: Organ Transplant HEENT Surgeries: Patient denies: Thyroid Surgery Abdominal Surgeries: Patient denies: Abdominal Surgery Reproductive Surgeries: Surgical HX of;: Section, Tubal Ligation Patient denies;: Genitourinary Surgery - Family History Family History: Reports;: Family Diabetes (grandmother), Family Hypertension - Social History Smoking Status: Former smoker Frequency of Alcohol Use: None Type of Drug Use: None 12 point system: reviewed and no additional remarkable complaints except as stated Exam - Constitutional Vitals: Period Temp Pulse Resp BP Sys/Dominguez Pulse Ox Last 24 Hr 97.6 F-97.6 F 118-134 15-18 202-239/128-177 98-100 General appearance: normal weight, disheveled - Head Head exam: Present: normal inspection, normocephalic, atraumatic - Eye Eye exam: Present: EOMI. Absent: conjunctival injection, nystagmus Pupils: Present: GERMAN, normal accommodation - ENT ENT exam: Present: normal exam, normal external ear exam, normal oropharynx - Neck Neck exam: Present: normal inspection. Absent: lymphadenopathy, meningismus, tenderness, thyromegaly - Respiratory Respiratory exam: Present: rhonchi - Cardiovascular Cardiovascular exam: Present: tachycardia - GI/Abdominal GI/Abdominal exam: Present: normal bowel sounds, soft. Absent: tenderness - Extremities Exam Extremities exam: Present: normal inspection, full ROM. Absent: edema - Back Exam Back exam: Present: normal inspection - Neurological Exam Neurological exam: Present: alert, oriented X3, CN II-XII intact - Psychiatric Psychiatric exam: Present: flat affect - Skin Skin exam: Present: normal color, warm, dry Results - Labs CBC & BMP: 04/23/17 13:13 04/23/17 10:57 Lab Results: I have reviewed the past 24 hour labs
[2017-04-23] MEDS ORDERED: ALBUTEROL 2.5 MG/3 ML NEB RESP TX PRN (14:09)
[2017-04-23] MEDS ORDERED: niCARdipine INJ 50 MG in SODIUM CHLORIDE 0.9% 230 ML IV SCH (14:30)
--- NOTE | 2017-04-23 16:57 | ECHO Report ---
Geno Corona 04/23/2017 Exam Date: 14:51 Referring Physician: Elizabeth Mcgill Technologist: KHANH Age: 37 Ht (in): 65 Wt (lb): 155 FExam [facility] Gender: Echo [id number]: Elevated troponin, Hypertensive crisIndications:is, IDDM, Cocaine (primary) hypertension BP: 203 / 128 HR: 135 SinusRhythm: averageTechnical Quality: IMPRESSIONS Severe left ventricular hypertrophy. Left ventricular ejection fraction is estimated at 65 %. Tricuspid regurgitation velocities suggest a RVSP of 19 mmHg. Biatrial enlargment There is a very small echo dense circular mass at the most superior portion of the right atrial free wall. This is of unknown significance. Recommend repeat echocardiogram in 3 months. MEASUREMENTS (Male / Female) Normal Values 2D ECHO LV Diastolic Diameter PLAX 3.4 cm 4.2 - 5.9 / 3.9 - 5.3 cm LV Systolic Diameter PLAX 2.7 cm LV Fractional Shortening PLAX 19.9 % IVS Diastolic Thickness 2.2 cm 0.6 - 1.0 / 0.6 - 0.9 cm LVPW Diastolic Thickness 2.0 cm 0.6 - 1.0 / 0.6 - 0.9 cm RV Internal Dim ED PLAX 2.8 cm Aortic Root Diameter 2.6 cm LA Systolic Diameter LX 2.9 cm 3.0 - 4.0 / 2.7 - 3.8 cm DOPPLER TR Peak Velocity 216.0 cm/s TR Peak Gradient 18.7 mmHg FINDINGS Left Ventricle Normal left ventricular cavity size. Severe left ventricular hypertrophy. Left ventricular ejection fraction is estimated at 65 %. Diastolic parameters are most consistent with grade 1 diastolic dysfunction impaired relaxation Right Ventricle The right ventricle is normal in size and function. Right Atrium Moderately increased right atrial size. Left Atrium Moderately increased left atrial size. Mitral Valve Morphologically normal mitral valve without significant stenosis or prolapse. There is trivial mitral regurgitation. Aortic Valve Morphologically normal aortic valve without significant sclerosis or stenosis. There is no aortic regurgitation. Tricuspid Valve Morphologically normal tricuspid valve. Trace tricuspid valve regurgitation. Tricuspid regurgitation velocities suggest a RVSP of 19 mmHg. Pulmonic Valve Morphologically normal pulmonic valve without significant stenosis. There is no pulmonic regurgitation. Pericardium Normal pericardium without effusion. Aorta Normal ascending aorta dimension. Terrie Garza (Electronically Signed) 23 April 2017 Final Date: 16:55
[2017-04-23] MEDS: ASPIRIN 325 MG TABLET PO SCH (17:03)
[2017-04-23] MEDS: INSULIN LISPRO 100 UNIT/ML SUBCUT SCH ×2 (17:04→20:59)
[2017-04-23] MEDS: ISOSORBIDE DINITRATE 20 MG TABLET PO SCH (20:53)
[2017-04-23] MEDS: ENOXAPARIN 30 MG/0.3 ML SYRINGE SUBCUT SCH (20:53)
[2017-04-23] MEDS: hydroCHLOROthiazide 12.5 MG CAPSULE PO SCH (20:53)
[2017-04-23] MEDS: INSULIN NPH 100 UNIT/ML SUBCUT SCH (20:59)
[2017-04-24 05:46] LABS: Basophils % 0.3 % (0.0-0.8); Eosinophils % 0.3 % (0.00-10.9); Hematocrit 33.2 VOL% (35.7-47.0); Hemoglobin 10.9 GM/DL (12.0-16.0); Immature Granulocytes % 0.2 %; Immature Granulocytes Absolute 0.02 #; Lymphocytes # 3.4 10*3/uL (1.4-4.0); Lymphocytes % 37.7 % (21.3-54.2); Mean Corpuscular HGB Conc 32.8 GM/DL (32-36); Mean Corpuscular Hemoglobin 27 PG (27-34); Mean Corpuscular Volume 80.8 FL (87-102); Mean Platelet Volume 13.6 FL (9.6-12.0); Monocytes # 0.6 10*3/uL (0.11-0.8); Monocytes % 6.5 % (1.7-12.7); Neutrophils # 4.9 10*3/uL (1.4-7.4); Platelet Count 210 T/CUMM (130-400); Red Blood Count 4.11 MC/CUMM (3.8-5.5); Red Cell Distribution Width 15.8 % (9.3-17.3)
[2017-04-24 06:19] LABS: Albumin 2.8 G/DL (3.4-5.0); Calcium 8.9 MG/DL (8.5-10.1); Total Protein 6.9 G/DL (6.4-8.3)
[2017-04-24 06:20] LABS: Magnesium 2.4 MG/DL (1.8-2.4); Osmolality,Calculated 285.7 MOS/KG (273-304); Potassium 3.9 MMOL/L (3.5-5.1)
[2017-04-24] MEDS: ASPIRIN 325 MG TABLET PO SCH (08:45)
[2017-04-24] MEDS: INSULIN LISPRO 100 UNIT/ML SUBCUT SCH ×4 (08:45→21:29)
[2017-04-24] MEDS: ATORVASTATIN 80 MG TABLET PO SCH (08:46)
[2017-04-24] MEDS: INSULIN NPH 100 UNIT/ML SUBCUT SCH ×2 (08:46→21:29)
[2017-04-24] MEDS: amLODIPine 10 MG TABLET PO SCH (08:46)
[2017-04-24] MEDS: ISOSORBIDE DINITRATE 20 MG TABLET PO SCH ×2 (08:46→21:32)
[2017-04-24] MEDS: hydroCHLOROthiazide 12.5 MG CAPSULE PO SCH ×2 (08:46→21:32)
--- NOTE | 2017-04-24 10:26 | Hospitalist Progress Note ---
Assessment and Plan (1) Hypertensive emergency Status: Resolved Assessment and plan: 1)HTN emergency- BP now controlled on oral meds, and I will decrease the isordil since her SBP is in the 110s this morning. I think her vagueness in her answers and apathy may be part of HTN encephalopathy and also could be related to her cocaine use. 2)ALINA on CKD stage 3- baseline prob around 2.3. Monitor. Her renal disease is due to HTN. 3)cocaine abuse- long standing habit she is not interested in stopping. Current Visit: No (2) Cocaine abuse Status: Acute Current Visit: No (3) Diabetes Status: Chronic Current Visit: No Qualifiers: Diabetes mellitus type: type 2 Diabetes mellitus complication status: with kidney complications Diabetes mellitus complication detail: with chronic kidney disease Chronic kidney disease stage: stage 2 (mild) (4) ALINA (acute kidney injury) Status: Acute Current Visit: No Hospitalist: Subjective Interval history: Mrs Corona is doing well today. She is off the Cardene with controlled BP. She remains somewhat vague and I think she has HTN encephalopathy also. She is eating clears and her diet will be advanced. She will be transferred to the floor. SW to see re meds. Exam - Constitutional Vitals: Period Temp Pulse Resp BP Sys/Dominguez Pulse Ox Last 24 Hr 97.5 F-99.5 F 67-147 12-28 101-207/10-177 96-100 General appearance: normal weight, no acute distress - Eye Eye exam: Present: EOMI. Absent: scleral icterus - Respiratory Respiratory exam: Present: clear to auscultation bilaterally - Cardiovascular Cardiovascular exam: Present: regular rate and rhythm - GI/Abdominal GI/Abdominal exam: Present: normal bowel sounds, soft. Absent: tenderness - Extremities Exam Extremities exam: Absent: edema - Neurological Exam Neurological exam: Present: alert, oriented X3, CN II-XII intact. Absent: motor sensory deficit - Skin Skin exam: Present: warm, dry Results - Labs CBC & BMP: 04/24/17 04:28 04/24/17 04:28 Lab Results: I have reviewed the past 24 hour labs Quality Measures - Stroke Symptom Onset Unknown: No
[2017-04-24] MEDS: ENOXAPARIN 30 MG/0.3 ML SYRINGE SUBCUT SCH (21:30)
[2017-04-25 07:05] LABS: Calcium 8.7 MG/DL (8.5-10.1); Potassium 3.8 MMOL/L (3.5-5.1)
[2017-04-25 08:48] VITALS: BP 144/90
--- NOTE | 2017-04-25 09:17 | Discharge Summary ---
<Billie Fairchildda - Last Filed: 04/25/17 09:14> Hospital Course - Hospital Course Hospital Course: This is a 37-year-old female that presented to the ED at [facility] on the afternoon of April 23, 2017 for the evaluation of nausea, vomiting, and diarrhea. Patient has a medical history significant for diabetes mellitus, dyslipidemia, hypertension, bipolar disease, anxiety, cerebrovascular accident, transient ischemic attack, rheumatoid arthritis, and bladder incontinence. Patient has a surgical history of cardiac catheterization. The patient reported the onset of symptoms 1 day prior to presentation. Upon much encouragement, the patient reluctantly reported use of cocaine on yesterday. She reports that she has experience similar to the above each time she uses cocaine. After her symptoms continue to persist, the patient's mother brought her to the ED at [facility] for further evaluation. At the time of ED presentation, the patient was noted to be grossly hypertensive with a blood pressure of 207/177. Multiple antihypertensive agents were initiated at that time; with minimal relief. Urine toxicology reported positive findings for cocaine and serum alcohol was noted at less than 15. CT head without contrast was unremarkable for any acute process or any acute infarction intracranially. The patient was admitted to the critical care unit. Intravenous antihypertensive agents were initiated for blood pressure control. The patient' s condition slowly improved. The patient was subsequently transferred to the medical surgical unit on yesterday. The patient's condition is stable. The patient has not experienced any significant overnight events. Today, we feel that she is indeed appropriate for discharge to follow-up with her primary care physician as indicated. We will spoke with the patient in great detail regarding the severity of her comorbidities and the need to refrain from illicit drug use. The patient reported that she has no interest in stopping illicit drug use. Diagnosis - Discharge Diagnosis (1) Elevated troponin Status: Acute (2) Hypertensive crisis Status: Acute (3) Insulin dependent diabetes mellitus Status: Acute (4) Cocaine intoxication Status: Acute Specialty Discharge - Follow Up or Referrals Follow up with: Cardiology - [facility] [Provider Group] (follow up in 3 months with echo to evaluate mass ) Discharge Plan - Discharge Data Disposition: Disch To Home/Self Care - Discharge Medications New Isosorbide Dinitrate [Isordil] 10 mg PO BID #60 tablet Continue Insulin NPH [HumuLIN N] 15 unit SUBCUT BID cloNIDine HCl [Clonidine HCl] 0.3 mg PO TID Atorvastatin [Lipitor] 80 mg PO DAILY amLODIPine [Norvasc] 10 mg PO DAILY hydrALAZINE TAB [Apresoline Tab] 50 mg PO TID tablet hydroCHLOROthiazide [Microzide] 12.5 mg PO BID - Follow Up or Referral Follow Up: Cardiology - [facility] [Provider Group] (follow up in 3 months with echo to evaluate mass ) - Forms/Instructions Exam - Constitutional Vitals: Period Temp Pulse Resp BP Sys/Dominguez Pulse Ox Last 24 Hr 97.0 F-98.2 F 57-108 15-22 110-144/65-90 95-98 Discharge Results Procedures and tests throughout hospitalization: Pending Orders 04/23/17 15:55 MRSA Surveillence, Inf Control Routine Labs on day of discharge: Labs from last 24 hours 04/25/17 04/24/17 04/24/17 06:24 21:24 16:23 Sodium 136 Potassium 3.8 Chloride 104 Carbon Dioxide 21 Anion Gap 14.8 BUN 50 H Creatinine 3.00 H GFR Calculation 24 BUN/Creatinine Ratio 16.00 Glucose 96 POC Glucose 223 H 155 H Calculated Osmolality 284.0 Calcium 8.7 Troponin I 04/24/17 04/24/17 12:00 10:56 Sodium Potassium Chloride Carbon Dioxide Anion Gap BUN Creatinine GFR Calculation BUN/Creatinine Ratio Glucose POC Glucose 147 H Calculated Osmolality Calcium Troponin I 0.084 H DS: Provider Date of admission: 04/23/17 14:08 Primary care physician: . No PCP Attending physician on admission: Dena Acevedo MD Consults: 04/23/17 14:10 Consult to Case Mgmt/Social Srvs [CONS] Routine Reason for Case Mgmt/Social Srvs: Discharge Planning Rehab Discharging clinician: Lucinda Fairchild CNP <Johnson Betancourt - Last Filed: 04/25/17 09:35> Hospital Course - Time spent with patient Time with patient DS: Less than 30 minutes Diagnosis - Discharge Diagnosis (1) Hypertensive emergency Status: Resolved (2) Cocaine abuse Status: Chronic Discharge Plan - Discharge Data Condition at Discharge: Stable Discharge Diet: advance to your usual diet Activity: resume usual activities as tolerated Weight Bearing at Discharge: full weight bearing Contact your physician if you experience:: Shortness of breath Exam - Constitutional General appearance: normal weight - Head Head exam: Present: normocephalic, atraumatic - Eye Eye exam: Present: EOMI Pupils: Present: GERMAN - ENT ENT exam: Present: normal exam - Neck Neck exam: Present: normal inspection. Absent: thyromegaly - Respiratory Respiratory exam: Present: clear to auscultation bilaterally. Absent: wheezes - Cardiovascular Cardiovascular exam: Present: regular rate and rhythm - GI/Abdominal GI/Abdominal exam: Present: normal bowel sounds, soft. Absent: tenderness, rebound - Extremities Exam Extremities exam: Present: normal inspection - Back Exam Back exam: Present: normal inspection - Neurological Exam Neurological exam: Present: alert, oriented X3 - Psychiatric Psychiatric exam: Present: normal affect, normal mood - Skin Skin exam: Present: warm, intact
[2017-04-25] MEDS: INSULIN LISPRO 100 UNIT/ML SUBCUT SCH (09:20)
[2017-04-25] MEDS: INSULIN NPH 100 UNIT/ML SUBCUT SCH (09:20)
[2017-04-25] MEDS: ISOSORBIDE DINITRATE 20 MG TABLET PO SCH (09:21)
[2017-04-25] MEDS: ATORVASTATIN 80 MG TABLET PO SCH (09:22)
[2017-04-25] MEDS: hydroCHLOROthiazide 12.5 MG CAPSULE PO SCH (09:22)
[2017-04-25] MEDS: amLODIPine 10 MG TABLET PO SCH (09:22)
[2017-04-25] MEDS: ASPIRIN 325 MG TABLET PO SCH (09:22)
== END 2017-04-25 11:15 | disposition home or self-care (01) | DRG 199 ==
LOC: N.ED 09:28 → N.EDINP 14:08 → SUATTDRO 14:08 → N.ICU 15:29 → N.5E 04-24 13:44
PROVIDERS: ADMIT Internal Medicine; ATTEND Internal Medicine

== ENCOUNTER 2017-04-29 12:03 | Inpatient (IN) ==
[2017-04-29 12:34] LABS: Basophils % 0.3 % (0.0-0.8); Eosinophils # 0.1 10*3/uL (0.0-0.87); Eosinophils % 1.1 % (0.00-10.9); Hemoglobin 12.9 GM/DL (12.0-16.0); Immature Granulocytes % 0.2 %; Immature Granulocytes Absolute 0.02 #; Lymphocytes # 1.6 10*3/uL (1.4-4.0); Lymphocytes % 16.3 % (21.3-54.2); Mean Corpuscular HGB Conc 33.1 GM/DL (32-36); Mean Corpuscular Hemoglobin 26 PG (27-34); Mean Corpuscular Volume 79.9 FL (87-102); Mean Platelet Volume 12.8 FL (9.6-12.0); Monocytes # 0.5 10*3/uL (0.11-0.8); Monocytes % 4.8 % (1.7-12.7); Neutrophils # 7.5 10*3/uL (1.4-7.4); Neutrophils % 77.3 % (38.7-73.9); Platelet Count 259 T/CUMM (130-400); Red Blood Count 4.88 MC/CUMM (3.8-5.5); Red Cell Distribution Width 15.5 % (9.3-17.3); White Blood Count 9.7 T/CUMM (4-12)
--- NOTE | 2017-04-29 12:36 | XRay Report ---
XR chest 1V portable Indication: Cardiomegaly Comparison: Chest x-ray 04/23/2017. Technique: Portable AP chest was performed. Findings: Heart size is upper limits of normal. Pulmonary vasculature appears within normal limits. No significant abnormality of the mediastinal contours demonstrated. Lungs are clear. Bones and soft tissues demonstrate no significant abnormalities. Impression: 1. No evidence of acute pathology. Borderline cardiomegaly. 04/29/2017 12:33 PM PROCEDURE INTERPRETED AT [facility] DEPARTMENT OF RADIOLOGY Final Report Signed by: Dr. Monroe Dickey
[2017-04-29 12:46] LABS: INR 0.9; PT Patient Result 9.9 SECS; Partial Thromboplastin Time 27.4 SECS (0-40)
[2017-04-29 12:49] LABS: Barbiturates Screen,Urine Negative (Negative); Benzodiazepines Screen,Urine Negative (Negative); Cannabinoid Screen,Urine Negative (Negative); Opiate Screen,Urine Negative (Negative); Phencyclidine Screen,Urine Negative (Negative)
--- NOTE | 2017-04-29 12:54 | EKG Report ---
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
--- NOTE | 2017-04-29 12:54 | CT Report ---
CT head/brain wo con Indication: Hemiparesis Comparison: CT brain dated April 23, 2017 Technique: Multiple axial tomographic images of the brain were obtained without the use of intravenous contrast. Findings: Midline structures are nondisplaced. There is no convincing evidence of acute intracranial hemorrhage . Grossly stable small region of decreased attenuation involving the moreno radiata of the left frontal lobe, lentiform nucleus on the left, and left caudate head. Old lacunar infarcts of right caudate and bilateral thalami. Mild periventricular and subcortical hypoattenuation noted which is nonspecific but consistent with chronic microvascular ischemic change. Demyelinating process and vasculitis less likely considerations. Atherosclerotic calcifications demonstrated. The visualized paranasal sinuses and bilateral mastoid air cells are essentially clear. IMPRESSION: No significant change from April 23, 2017 study with chronic findings as detailed above. Consider MRI for further evaluation. The CT exam was performed using one or more of the following dose reduction techniques: Automated exposure control, adjustment of the mA and/or kV according to patient size, or use of iterative reconstruction technique. PROCEDURE INTERPRETED AT [facility] DEPARTMENT OF RADIOLOGY Final Report Signed by: Dr Adilson Krishna
[2017-04-29 12:56] LABS: Amorphous Crystals,Urine Occasional /HPF (Few); Apearance,Urine CLOUDY (Clear); Bilirubin,Urine Negative (Negative); Blood, Urine Small mg/dL (Negative); Glucose,Urine (UA) Negative (Negative); Hyaline Casts,Urine 1 /LPF (0-3); Ketones,Urine Negative (Negative); Mucus,Urine Occasional /LPF (Occasional); Nitrite,Urine Negative (Negative); Protein,Urine >=500 MG/DL; RBC,Urine 4 /HPF (0-4); Squamous Epithelial Cell,Urine Occasional /HPF (0-10); Urine Color Yellow (Yellow); Urine Specific Gravity 1.014 (1.001-1.035); Urine Urobilinogen < 2.0 EU/DL (0.2-1.0); WBC,Urine 2 /HPF (0-6)
[2017-04-29] MEDS ORDERED: DILTIAZEM INJ 100 MG in SODIUM CHLORIDE 0.9% 100 ML IV SCH (13:00)
[2017-04-29] MEDS ORDERED: niCARdipine 25 MG/10 ML VIAL IV ONE (13:08)
[2017-04-29 13:11] LABS: Alanine Aminotransferase 18 U/L (13-56); Albumin 3.7 G/DL (3.4-5.0); Alkaline Phosphatase 138 U/L (45-117); Aspartate Amino Transferase 21 U/L (0-37); Bilirubin,Total < 0.39 MG/DL (0.2-1.0); Blood Urea Nitrogen 39 MG/DL (7-18); Calcium 10.2 MG/DL (8.5-10.1); Glucose 168 MG/DL (74-106); Osmolality,Calculated 285.8 MOS/KG (273-304); Potassium 3.4 MMOL/L (3.5-5.1); Sodium 137 MMOL/L (136-145); Total Protein 8.9 G/DL (6.4-8.3)
[2017-04-29] MEDS: niCARdipine INJ 25 MG in SODIUM CHLORIDE 0.9% 240 ML IV SCH ×2 (13:22→20:14)
--- NOTE | 2017-04-29 14:11 | Emergency Department Note ---
ILayne Mantricia, am scribing for, and in the presence of, Gurvinder Denise MD 12:33. ICamelia Phillip K, MD, personally performed the services described in this documentation, ascribed by Jose Tillman in my presence, and it is both accurate and complete [id number] . Arrival - Arrival Chief Complaint: Non-Specific Stated Complaint: given med and can't see now ED Nursing Triage Note: pt was at the [facility] on 19 and was given some meds and then had some nausea and now cant see Mode of Arrival: Wheelchair Limitations: Language Barrier Source: Patient Time Seen by Provider: 04/29/17 12:21 - History of Present Illness HPI Narrative: Pt is a 37 y/o black female ambulating to ED with c/o elevated blood pressure, nausea, and vision change. Mother reports that pt told her that she is not able to see. Pt was seen at the [facility] for hypertension and was given medications and discharged home. Shortly after is when she became nauseous and "could not see." Pt admits that she is out of hydrochlorothiazide, hydralazine , clonidine, and atorvastatin for about 2 weeks and has not been able to purchase them. Pt has a PMHx of CVA that affected her right nerves, HTN, and IDDM in which she takes insulin twice a day. Pt's last ED visit revealed that she uses cocaine; she admits to smoking daily but denies any other drugs. No other complaints were reported to ED. Onset (ago): hour(s) Consistency: constant Severity: mild Allergies/Adverse Reactions: Allergies Allergy/AdvReac Type Severity Reaction Status Date / Time sulfamethoxazole Allergy RASH Verified 02/21/16 17:16 [From Bactrim] trimethoprim [From Bactrim] Allergy RASH Verified 02/21/16 17:16 Penicillins AdvReac Mild RASH Verified 02/19/17 12:56 Home Medications: Home Medications Medication Instructions Recorded Confirmed Type Insulin NPH [HumuLIN N] 15 unit SUBCUT BID 07/22/16 04/23/17 History Atorvastatin [Lipitor] 80 mg PO DAILY 03/07/17 04/23/17 History amLODIPine [Norvasc] 10 mg PO DAILY 03/07/17 04/23/17 History hydroCHLOROthiazide [Microzide] 12.5 mg PO BID 03/07/17 04/23/17 History hydrALAZINE TAB [Apresoline Tab] 50 mg PO TID tablet 03/18/17 04/23/17 Rx cloNIDine HCl [Clonidine HCl] 0.3 mg PO TID 04/23/17 04/23/17 History Isosorbide Dinitrate [Isordil] 10 mg PO BID #60 tablet 04/25/17 Rx Review of System - Review of System Constitutional: Present: other (elevated blood pressure). Absent: chills, diaphoresis, fever Eyes: Present: vision change Respiratory: Absent: cough Cardiovascular: Absent: chest pain Gastrointestinal: Present: nausea. Absent: abdominal pain, vomiting, diarrhea Medical,Surgical,& Family Hx - Medical History Cardio: History of: CHF, Hypertension, Cardiovascular Problems (cardiomyopathy) Psychological: History of: Anxiety Disorders, Behavior Problems, Bipolar Disorder (age 18), Depression (undiagnosed), Psychiatric/Substance Abuse Tx Neurology: History of: Cerebrovascular Accident (january 2017), TIA Endocrine: History of: Diabetes Mellitus (IDDM), Diabetes Mellitus (NIDDM) Rheumatology: History of;: Rheumatoid Arthritis Genitourinary: History of: Bladder Problem (incontinent) Musculoskeletal: No history of: Amputation Hematology: No history of: Blood Transfusion Reaction Other: No history of: Anesthesia Reactions - Surgical History Cardiac Surgeries: Sugical HX of: Cardiac Catheterization (states done in february) Thoracic Surgeries: Patient denies;: Organ Transplant Neurologic Surgeries: Patient denies: Neurologic Surgery HEENT Surgeries: Patient denies: Thyroid Surgery Abdominal Surgeries: Patient denies: Abdominal Surgery Reproductive Surgeries: Surgical HX of;: Section, Tubal Ligation Patient denies;: Genitourinary Surgery - Family History Family History: Reports;: Family Diabetes (grandmother), Family Hypertension - Social History Smoking Status: Former smoker Frequency of Alcohol Use: None Type of Drug Use: None Exam Vital Signs: Vital Signs Temperature 97.8 F 04/29/17 12:18 Pulse Rate 108 H 04/29/17 13:15 Respiratory Rate 20 04/29/17 13:15 Blood Pressure 216/129 04/29/17 13:15 O2 Sat by Pulse Oximetry 100 04/29/17 13:15 - General General appearance: alert, in no apparent distress - Head Head exam: Present: atraumatic, normocephalic, normal inspection - Eye Eye exam: Present: normal appearance, PERRL, EOMI - ENT ENT exam: Present: normal exam, normal oropharynx, mucous membranes moist, TM's normal bilaterally, normal external ear exam - Neck Neck exam: Present: normal inspection, full ROM, trachea midline. Absent: tenderness - Chest Chest inspection: Present: normal inspection, symmetric chest wall rise. Absent : tenderness - Respiratory Respiratory exam: Present: normal lung sounds bilaterally - Cardiovascular Cardiovascular exam: Present: normal rhythm, tachycardia, normal heart sounds - Abdominal Exam Abdominal exam: Present: soft, normal bowel sounds. Absent: distention, tenderness, guarding, rebound - Extremities Exam Extremities exam: Present: normal inspection, full ROM, normal capillary refill. Absent: tenderness, pedal edema - Back Exam Back exam: Present: normal inspection, full ROM. Absent: tenderness - Neurological Exam Neurological exam: Present: alert, oriented X3, CN II-XII intact, normal gait, reflexes normal - Psychiatric Psychiatric exam: Present: normal affect, normal mood - Skin Skin exam: Present: warm, dry, intact, normal color Results - Labs CBC & BMP: 04/29/17 12:22 04/29/17 12:22 Lab Results: I have reviewed the patients labs Labs: Laboratory Tests 04/29/17 04/29/17 04/29/17 12:22 12:22 12:22 MCV 79.9 L MCH 26 L MPV 12.8 H Neut % (Auto) 77.3 H Lymph % (Auto) 16.3 L Neut # (Auto) 7.5 H Potassium 3.4 L BUN 39 H Creatinine 2.70 H Glucose 168 H Calcium 10.2 H Alkaline Phosphatase 138 H Total Protein 8.9 H Globulin 5.2 H Albumin/Globulin Ratio 0.7 L Urine Urobilinogen < 2.0 H Serum Alcohol < 15 L - EKG EKG results: interpreted by ERMOral, sinus rhythm (Sinus tachycardia with left ventricular hypertrophy and strain) - Diagnostic Findings Procedure: Chest x-ray: report reviewed by me ( No evidence of acute pathology. Borderline cardiomegaly.), CT: report reviewed by me (Head: No significant change from April 23, 2017. Consider MRI for further evaluation.)
--- NOTE | 2017-04-29 15:14 | Hospitalist History & Physical ---
Assessment and Plan - Time spent with patient Time spent with patient: Greater than 30 minutes (1) Hypertensive emergency Status: Resolved Assessment and plan: 37-year-old -[place] female who is noncompliant with her medications. Presents with hypertensive emergency. She started on Cardene drip in the ED with resultant BP 181/114. Patient was admitted to the CCU for further evaluation and continuation of treatment. We will titrate her Cardene stepwise and resume home medications as appropriate. Current Visit: No (2) ALINA (acute kidney injury) Status: Acute Assessment and plan: Patient is likely dehydrated. Was blood pressure is under control we will gently hydrate with IV fluids. Avoid nephrotoxic agents. Current Visit: No (3) Cardiac arrhythmia Status: Resolved Current Visit: No (4) Insulin dependent diabetes mellitus Status: Acute Assessment and plan: Accu-Cheks before meals at bedtime. Sliding scale insulin as needed. Current Visit: No History of Present Illness Chief complaint: Hypertensive urgency History of present illness: Ms. Corona is a 37 year old -[place] female with a past medical history of CVA, hypertension and insulin-dependent diabetes mellitus who presents to the ED today with complaints of "not feeling well" and "could not see" having onset this morning. This patient is well-known to our service and is notoriously noncompliant with her medications. She presents today hypertensive urgency with a blood pressure 221/146 on admission. Patient notes that she felt funny this morning and reports that she could not see. She states that she asked her mother to "slap her" because she "could not see". Patient is a very poor historian and has altered her stories between providers. She tells me that she took all of her medicine this morning as prescribed. However, upon further investigation, it was found that patient has been out of several of her medications namely her antihypertensives for at least 2 weeks now. On exam, the patient is awake but appears drowsy with delayed speech. She remains hypertensive on a Cardene drip. Last known BP was 181/114. She confirms change in vision which is now resolved. Patient denies headache, chest pain, pain on inspiration, change in appetite, nausea or vomiting, numbness or tingling. Lab work reveals: WBC 9.7, hemoglobin 12.9, hematocrit 39.0, MCV 79.9, INR 0.9, sodium 137, potassium 3.4, BUN 39, creatinine 2.70, serum glucose 168. Urine drug screen is negative. Case has been discussed with both Dr. Denise and Dr. Santa, the patient will be admitted to the intensive care unit for further observation and treatment. Patient is a full code. Home medications have been reviewed and reconciled. Home Medications Medication Instructions Recorded Confirmed Type Insulin NPH [HumuLIN N] 15 unit SUBCUT BID 07/22/16 04/29/17 History Atorvastatin [Lipitor] 80 mg PO BEDTIME 03/07/17 04/29/17 History hydroCHLOROthiazide [Microzide] 12.5 mg PO BID 03/07/17 04/29/17 History hydrALAZINE TAB [Apresoline Tab] 50 mg PO TID tablet 03/18/17 04/29/17 Rx cloNIDine HCl [Clonidine HCl] 0.3 mg PO TID 04/23/17 04/29/17 History Aspirin EC Tab 325 mg PO DAILY 04/29/17 04/29/17 History Isosorbide Dinitrate 10 mg PO BID 04/29/17 04/29/17 History amLODIPine [Norvasc] 10 mg PO DAILY 04/29/17 04/29/17 History Allergies Allergy/AdvReac Type Severity Reaction Status Date / Time sulfamethoxazole Allergy RASH Verified 02/21/16 17:16 [From Bactrim] trimethoprim [From Bactrim] Allergy RASH Verified 02/21/16 17:16 Penicillins AdvReac Mild RASH Verified 02/19/17 12:56 Medical,Surgical,& Family Hx - Medical History Cardio: History of: CHF, Hypertension, Cardiovascular Problems (cardiomyopathy) Psychological: History of: Anxiety Disorders, Behavior Problems, Bipolar Disorder (age 18), Depression (undiagnosed), Psychiatric/Substance Abuse Tx Neurology: History of: Cerebrovascular Accident (january 2017), TIA Endocrine: History of: Diabetes Mellitus (IDDM), Diabetes Mellitus (NIDDM) Rheumatology: History of;: Rheumatoid Arthritis Genitourinary: History of: Bladder Problem (incontinent) Musculoskeletal: No history of: Amputation Hematology: No history of: Blood Transfusion Reaction Other: No history of: Anesthesia Reactions - Surgical History Cardiac Surgeries: Sugical HX of: Cardiac Catheterization (states done in february) Thoracic Surgeries: Patient denies;: Organ Transplant Neurologic Surgeries: Patient denies: Neurologic Surgery HEENT Surgeries: Patient denies: Thyroid Surgery Abdominal Surgeries: Patient denies: Abdominal Surgery Reproductive Surgeries: Surgical HX of;: Section, Tubal Ligation Patient denies;: Genitourinary Surgery - Family History Family History: Reports;: Family Diabetes (grandmother), Family Hypertension - Social History Smoking Status: Former smoker Frequency of Alcohol Use: None Type of Drug Use: None Marital Status: Single Lives With:: Significant Other Functional capacity: independent ambulation ROS unobtainable: due to encephalopathy Exam - Constitutional Vitals: Period Temp Pulse Resp BP Sys/Dominguez Pulse Ox Last 24 Hr 97.8 F-97.8 F 102-128 18-20 150-227/101-152 99-100 Exam: General appearance: normal weight, no acute distress - Head Head exam: Present: normocephalic, atraumatic - Eye Eye exam: Present: EOMI. Absent: conjunctival injection, nystagmus Pupils: Present: GERMAN, normal accommodation - ENT ENT exam: Present: normal exam, normal external ear exam - Neck Neck exam: Present: normal inspection. Absent: lymphadenopathy, tenderness, thyromegaly - Respiratory Respiratory exam: Present: clear to auscultation bilaterally. Absent: rales, rhonchi, wheezes - Cardiovascular Cardiovascular exam: Present: Tachycardia. Absent: carotid bruit, gallop, rubs - GI/Abdominal GI/Abdominal exam: Present: normal bowel sounds. Absent: ascites, distended, mass - Extremities Exam Extremities exam: Present: normal inspection, normal capillary refill. Absent: edema - Back Exam Back exam: Absent: CVA tenderness (L), CVA tenderness (R) - Neurological Exam Neurological exam: Present: alert, oriented to person and situation, CN II-XII intact, reflexes normal - Skin Skin exam: Present: normal color, warm, dry Results - Labs CBC & BMP: 04/29/17 12:22 04/29/17 12:22 Lab Results: I have reviewed the past 24 hour labs - EKG EKG results: interpreted by REINA, sinus rhythm EKG shows: tachycardia - Diagnostic Findings Procedure: Chest x-ray: image reviewed by me, report reviewed by me ( Unremarkable), CT: image reviewed by me, report reviewed by me (Head: No significant change from April 23, 2017)
[2017-04-29] MEDS ORDERED: LABETALOL 20 MG/4 ML SYRINGE IV ONE (15:52)
[2017-04-29] MEDS ORDERED: GLUCAGON 1 MG VIAL IM PRN (17:15)
[2017-04-29] MEDS ORDERED: DEXTROSE 50% 25 GM/50 ML SYRINGE IV PRN (17:15)
[2017-04-29] MEDS ORDERED: LABETALOL 20 MG/4 ML SYRINGE IV PRN (18:26)
[2017-04-29] MEDS ORDERED: hydroCHLOROthiazide 12.5 MG CAPSULE PO SCH (21:00)
[2017-04-29] MEDS: ISOSORBIDE DINITRATE 10 MG TABLET PO SCH (21:41)
[2017-04-29] MEDS: INSULIN LISPRO 100 UNIT/ML SUBCUT SCH (21:47)
[2017-04-29] MEDS: ATORVASTATIN 80 MG TABLET PO SCH (21:48)
[2017-04-29 23:58] LABS: Apearance,Urine Slightly Hazy (Clear); Bilirubin,Urine Negative (Negative); Blood, Urine Small mg/dL (Negative); Glucose,Urine (UA) 50 mg/dL (Negative); Granular Casts,Urine 3 /LPF (0-1); Ketones,Urine Negative (Negative); Nitrite,Urine Negative (Negative); Protein,Urine 100 MG/DL; Squamous Epithelial Cell,Urine Occasional /HPF (0-10); Urine Color Yellow (Yellow); Urine Specific Gravity 1.012 (1.001-1.035); Urine Urobilinogen < 2.0 EU/DL (0.2-1.0)
[2017-04-30 04:13] LABS: Basophils % 0.6 % (0.0-0.8); Eosinophils # 0.1 10*3/uL (0.0-0.87); Eosinophils % 1.6 % (0.00-10.9); Hematocrit 33.8 VOL% (35.7-47.0); Hemoglobin 11.2 GM/DL (12.0-16.0); Immature Granulocytes % 0.3 %; Immature Granulocytes Absolute 0.02 #; Lymphocytes # 2.4 10*3/uL (1.4-4.0); Lymphocytes % 34.7 % (21.3-54.2); Mean Corpuscular HGB Conc 33.1 GM/DL (32-36); Mean Corpuscular Hemoglobin 26 PG (27-34); Mean Corpuscular Volume 79.7 FL (87-102); Mean Platelet Volume 12.7 FL (9.6-12.0); Monocytes # 0.5 10*3/uL (0.11-0.8); Monocytes % 7.1 % (1.7-12.7); Neutrophils # 3.9 10*3/uL (1.4-7.4); Neutrophils % 55.7 % (38.7-73.9); Platelet Count 232 T/CUMM (130-400); Red Blood Count 4.24 MC/CUMM (3.8-5.5); Red Cell Distribution Width 15.6 % (9.3-17.3)
[2017-04-30 04:42] LABS: Calcium 9.4 MG/DL (8.5-10.1); Osmolality,Calculated 284.5 MOS/KG (273-304); Potassium 2.8 MMOL/L (3.5-5.1)
[2017-04-30] MEDS: POTASSIUM CHLORIDE RIDER 10 MEQ in PREMIX 1 EACH IV PRN ×2 (05:10→06:01)
[2017-04-30] MEDS ORDERED: POTASSIUM CHLORIDE 20 MEQ TABLET PO ONE (07:24)
[2017-04-30] MEDS: INSULIN LISPRO 100 UNIT/ML SUBCUT SCH ×4 (07:42→21:31)
[2017-04-30] MEDS: amLODIPine 10 MG TABLET PO SCH (08:16)
[2017-04-30] MEDS: ISOSORBIDE DINITRATE 10 MG TABLET PO SCH ×2 (08:16→21:31)
[2017-04-30] MEDS: ASPIRIN EC 325 MG TABLET PO SCH (08:16)
[2017-04-30] MEDS: METOPROLOL SUCCINATE XL 25 MG TABLET PO SCH (08:17)
--- NOTE | 2017-04-30 09:55 | Hospitalist Progress Note ---
Assessment and Plan (1) Hypertensive emergency Status: Acute Assessment and plan: Admitted to CCU for Cardene infusion. Home medications were resumed. Metoprolol added. Transfer to telemetry Current Visit: Yes (2) CKD (chronic kidney disease) Status: Chronic Current Visit: Yes Qualifiers: Chronic kidney disease stage: stage 3 (moderate) Qualified Code(s): N18.3 - Chronic kidney disease, stage 3 (moderate) (3) Diabetes Status: Chronic Current Visit: Yes Qualifiers: Diabetes mellitus type: type 2 Diabetes mellitus complication status: with kidney complications Diabetes mellitus complication detail: with chronic kidney disease Chronic kidney disease stage: stage 3 (moderate) (4) CVA (cerebral vascular accident) Status: Chronic Current Visit: No Qualifiers: Laterality of affected vessel: unspecified (5) Hypokalemia Status: Acute Assessment and plan: Replacement ordered Current Visit: No Hospitalist: Subjective Interval history: Patient seen and examined. No acute events overnight. Case discussed with nursing staff. Labs reviewed. She looks and feels better this morning and is requesting juice. Cardene has been discontinued. Oral medications resumed. Vital signs stable. Transfer to the floor. Echocardiogram performed 2 weeks ago reveals IMPRESSIONS: Severe left ventricular hypertrophy. Left ventricular ejection fraction is estimated at 65 %. Tricuspid regurgitation velocities suggest a RVSP of 19 mmHg. Biatrial enlargment. There is a very small echo dense circular mass at the most superior portion of the right atrial free wall. This is of unknown significance. Recommend repeat echocardiogram in 3 months. Exam - Constitutional Vitals: Period Temp Pulse Resp BP Sys/Dominguez Pulse Ox Last 24 Hr 96.9 F-98.4 F 68-128 9-25 113-227/72-152 96-100 Exam: Constitutional System: No distress. No tremulousness. Head: Normocephalic, atraumatic. Ears, Nose and Throat System: No pain or tenderness. No epistaxis or discharge Eyes System: Pupils equal, round, and reactive. Extraocular muscles intact. Neck: Supple, without adenopathy, No jugular venous distention. No thyromegaly, neck mass, or prior surgery apparent. Respiratory System: Chest clear to auscultation. Cardiovascular System: Heart with regular rate and rhythm. GI System: Abdomen soft, nontender. Normo active bowel sounds present. Musculoskeletal System: limbs with no pedal edema. Full distal pulses. Neurological System: No discernable sensory deficit. No aphasia Psychiatric System: Conversation is rational Results - Labs CBC & BMP: 04/30/17 03:43 04/30/17 03:43 Lab Results: I have reviewed the past 24 hour labs
[2017-04-30 20:56] LABS: Hepatitis A Ab IgM Quant 0.13 Index; Hepatitis A Ab IgM Result Negative (Negative); Hepatitis B Core IgM Quant 0.05 Index; Hepatitis B Core IgM Result Negative (Negative); Hepatitis B Surface Ag Quant 0.17 Index; Hepatitis B Surface Ag Result Negative (Negative); Hepatitis C Virus Ab Result Negative (Negative)
[2017-04-30] MEDS: ATORVASTATIN 80 MG TABLET PO SCH (21:31)
[2017-05-01 04:48] LABS: Basophils % 0.5 % (0.0-0.8); Eosinophils # 0.2 10*3/uL (0.0-0.87); Eosinophils % 2.8 % (0.00-10.9); Hemoglobin 10.3 GM/DL (12.0-16.0); Immature Granulocytes % 0.3 %; Immature Granulocytes Absolute 0.02 #; Lymphocytes # 1.8 10*3/uL (1.4-4.0); Lymphocytes % 30.3 % (21.3-54.2); Mean Corpuscular HGB Conc 32.2 GM/DL (32-36); Mean Corpuscular Hemoglobin 27 PG (27-34); Mean Corpuscular Volume 82.3 FL (87-102); Mean Platelet Volume 12.7 FL (9.6-12.0); Monocytes # 0.5 10*3/uL (0.11-0.8); Monocytes % 8.8 % (1.7-12.7); Neutrophils # 3.5 10*3/uL (1.4-7.4); Neutrophils % 57.3 % (38.7-73.9); Platelet Count 218 T/CUMM (130-400); Red Blood Count 3.89 MC/CUMM (3.8-5.5); Red Cell Distribution Width 15.7 % (9.3-17.3)
[2017-05-01 05:25] LABS: Calcium 8.5 MG/DL (8.5-10.1); Osmolality,Calculated 291.5 MOS/KG (273-304); Potassium 3.9 MMOL/L (3.5-5.1)
[2017-05-01] MEDS: ASPIRIN EC 325 MG TABLET PO SCH (09:24)
[2017-05-01] MEDS: amLODIPine 10 MG TABLET PO SCH (09:24)
--- NOTE | 2017-05-01 09:24 | Discharge Summary ---
Hospital Course - Hospital Course Hospital Course: 37-year-old black female admitted to the hospital with hypertensive urgency. The patient has a history of hypertension and noncompliance. She has a history of a previous stroke. She was placed in the CCU on a Cardene drip and her home medications were restarted. The patient had good response to her home blood pressure medications. The Cardene was weaned off. She was transferred to telemetry. Metoprolol was added for improved blood pressure and heart rate control. She has reached maximal benefit from this inpatient hospitalization and is ready for discharge home. New prescriptions were sent electronically to her pharmacy. Her home medications were reviewed and reconciled. She is a full code. She is discharged home in stable condition to follow-up with her primary care physician in 1 week. - Time spent with patient Time with patient DS: Greater than 30 minutes (Total discharge time for this patient, including [id number] time, clinical documentation, medication reconciliation, and discharge planning was 38 minutes.) Diagnosis - Discharge Diagnosis (1) Hypertensive emergency Status: Acute (2) CKD (chronic kidney disease) Status: Chronic (3) Diabetes Status: Chronic (4) CVA (cerebral vascular accident) Status: Chronic (5) Hypokalemia Status: Resolved (6) Hypertension Status: Chronic Specialty Discharge - Follow Up or Referrals Follow up with: Corrina Fu MD [Physician] - 1 Week Discharge Plan - Discharge Data Disposition: Disch To Home/Self Care Condition at Discharge: Stable Discharge Diet: advance to your usual diet Activity: resume usual activities as tolerated Hygiene: no restrictions Weight Bearing at Discharge: full weight bearing Contact your physician if you experience:: fever over 101, Nausea/Vomiting, Shortness of breath, pain uncontrolled by pain medications - Discharge Medications New hydrALAZINE TAB [Apresoline Tab] 50 mg PO TID #90 tablet Metoprolol Succinate Xl [Toprol Xl] 25 mg PO DAILY #30 tablet Continue Insulin NPH [HumuLIN N] 15 unit SUBCUT BID Aspirin EC Tab 325 mg PO DAILY amLODIPine [Norvasc] 10 mg PO DAILY #30 tablet Atorvastatin [Lipitor] 80 mg PO BEDTIME #30 tablet cloNIDine HCl [Clonidine HCl] 0.3 mg PO TID #90 tablet hydroCHLOROthiazide [Microzide] 12.5 mg PO BID #60 tablet Isosorbide Dinitrate 10 mg PO BID #60 tablet Discontinued hydrALAZINE TAB [Apresoline Tab] 50 mg PO TID tablet - Follow Up or Referral Follow Up: Corrina Fu MD [Physician] - 1 Week - Forms/Instructions Exam - Constitutional Vitals: Period Temp Pulse Resp BP Sys/Dominguez Pulse Ox Last 24 Hr 96.7 F-98.6 F 61-83 16-20 121-138/70-90 97-99 Discharge Results Procedures and tests throughout hospitalization: Pending Orders 04/30/17 18:20 Exposure Profile Employee 1 Stat Labs on day of discharge: Labs from last 24 hours 05/01/17 05/01/17 05/01/17 07:46 04:13 04:13 WBC 6.0 RBC 3.89 Hgb 10.3 L Hct 32.0 L MCV 82.3 L MCH 27 MCHC 32.2 RDW 15.7 Plt Count 218 MPV 12.7 H Neut % (Auto) 57.3 Lymph % (Auto) 30.3 [place] % (Auto) 8.8 Eos % (Auto) 2.8 Baso % (Auto) 0.5 Neut # (Auto) 3.5 Lymph # (Auto) 1.8 [place] # (Auto) 0.5 Eos # (Auto) 0.2 Baso # (Auto) 0.0 Immature Gran % 0.3 Nucleated RBC % 0.0 Immature Gran # 0.02 Nucleated RBCs # 0.00 Immature Plt Fraction 0.0 Sodium 139 Potassium 3.9 Chloride 106 Carbon Dioxide 24 Anion Gap 12.9 BUN 48 H Creatinine 2.80 H GFR Calculation 25 BUN/Creatinine Ratio 17.00 Glucose 139 H POC Glucose 220 H Calculated Osmolality 291.5 Calcium 8.5 Hepatitis A IgM Ab Hep Bs Antigen Hep B Core IgM Ab Hepatitis C Antibody HIV 1&2 Antigen & Ab 04/30/17 04/30/17 04/30/17 19:49 19:15 18:20 WBC RBC Hgb Hct MCV MCH MCHC RDW Plt Count MPV Neut % (Auto) Lymph % (Auto) [place] % (Auto) Eos % (Auto) Baso % (Auto) Neut # (Auto) Lymph # (Auto) [place] # (Auto) Eos # (Auto) Baso # (Auto) Immature Gran % Nucleated RBC % Immature Gran # Nucleated RBCs # Immature Plt Fraction Sodium Potassium Chloride Carbon Dioxide Anion Gap BUN Creatinine GFR Calculation BUN/Creatinine Ratio Glucose POC Glucose 302 H Calculated Osmolality Calcium Hepatitis A IgM Ab Negative Hep Bs Antigen Negative Hep B Core IgM Ab Negative Hepatitis C Antibody Negative HIV 1&2 Antigen & Ab Nonreactive 04/30/17 04/30/17 16:12 11:17 WBC RBC Hgb Hct MCV MCH MCHC RDW Plt Count MPV Neut % (Auto) Lymph % (Auto) [place] % (Auto) Eos % (Auto) Baso % (Auto) Neut # (Auto) Lymph # (Auto) [place] # (Auto) Eos # (Auto) Baso # (Auto) Immature Gran % Nucleated RBC % Immature Gran # Nucleated RBCs # Immature Plt Fraction Sodium Potassium Chloride Carbon Dioxide Anion Gap BUN Creatinine GFR Calculation BUN/Creatinine Ratio Glucose POC Glucose 167 H 279 H Calculated Osmolality Calcium Hepatitis A IgM Ab Hep Bs Antigen Hep B Core IgM Ab Hepatitis C Antibody HIV 1&2 Antigen & Ab DS: Provider Date of admission: 04/29/17 14:16 Primary care physician: . No PCP Attending physician on admission: Levi Santa MD Discharging clinician: Levi Santa MD Expected date of discharge: 05/01/17
[2017-05-01] MEDS: METOPROLOL SUCCINATE XL 25 MG TABLET PO SCH (09:25)
[2017-05-01] MEDS: ISOSORBIDE DINITRATE 10 MG TABLET PO SCH (09:25)
[2017-05-01] MEDS: INSULIN LISPRO 100 UNIT/ML SUBCUT SCH ×2 (09:25→14:05)
[2017-05-01 12:06] VITALS: BP 125/83
== END 2017-05-01 13:50 | disposition home or self-care (01) | DRG 199 ==
LOC: N.ED 12:03 → N.EDINP 14:16 → N.CC 15:09 → N.TELEN 04-30 12:23
PROVIDERS: ADMIT Family Medicine; ATTEND Family Medicine

== ENCOUNTER 2017-11-19 16:23 | Inpatient (IN) ==
[2017-11-19] MEDS ORDERED: METOPROLOL TARTRATE 5 MG/5 ML VIAL IV ONE ×2 (16:45→17:00)
[2017-11-19] MEDS ORDERED: ADENOSINE 6 MG/2 ML VIAL ONE ×2 (16:45→16:54)
[2017-11-19] MEDS ORDERED: METOPROLOL TARTRATE 5 MG/5 ML VIAL IV STA (17:00)
[2017-11-19] MEDS ORDERED: LORazepam 2 MG/1 ML VIAL IV STA (17:00)
[2017-11-19] MEDS ORDERED: ADENOSINE 6 MG/2 ML VIAL IV STA (17:00)
[2017-11-19 17:16] LABS: Basophils % 0.5 % (0.0-0.8); Eosinophils # 0.1 10*3/uL (0.0-0.87); Eosinophils % 0.7 % (0.00-10.9); Hematocrit 46.2 VOL% (35.7-47.0); Hemoglobin 15.2 GM/DL (12.0-16.0); Immature Granulocytes % 0.2 %; Immature Granulocytes Absolute 0.02 #; Lymphocytes # 1.6 10*3/uL (1.4-4.0); Lymphocytes % 19.1 % (21.3-54.2); Mean Corpuscular HGB Conc 32.9 GM/DL (32-36); Mean Corpuscular Hemoglobin 29 PG (27-34); Mean Corpuscular Volume 88.3 FL (87-102); Mean Platelet Volume 13.8 FL (9.6-12.0); Monocytes # 0.4 10*3/uL (0.11-0.8); Monocytes % 4.2 % (1.7-12.7); Neutrophils # 6.4 10*3/uL (1.4-7.4); Neutrophils % 75.3 % (38.7-73.9); Platelet Count 199 T/CUMM (130-400); Red Blood Count 5.23 MC/CUMM (3.8-5.5); Red Cell Distribution Width 14.6 % (9.3-17.3); White Blood Count 8.5 T/CUMM (4-12)
[2017-11-19 17:25] LABS: Barbiturates Screen,Urine Negative (Negative); Benzodiazepines Screen,Urine Negative (Negative); Cannabinoid Screen,Urine Negative (Negative); Opiate Screen,Urine Negative (Negative); Phencyclidine Screen,Urine Negative (Negative)
[2017-11-19 17:26] LABS: INR 0.9; PT Patient Result 9.7 SECS; Partial Thromboplastin Time 28.4 SECS (0-40)
[2017-11-19 18:30] LABS: Alanine Aminotransferase 20 U/L (13-56); Albumin 3.5 G/DL (3.4-5.0); Alkaline Phosphatase 109 U/L (45-117); Aspartate Amino Transferase 17 U/L (0-37); Bilirubin,Total < 0.39 MG/DL (0.2-1.0); Blood Urea Nitrogen 39 MG/DL (7-18); Glucose 207 MG/DL (74-106); Osmolality,Calculated 291.5 MOS/KG (273-304); Potassium 4.4 MMOL/L (3.5-5.1); Sodium 139 MMOL/L (136-145); Total Protein 7.3 G/DL (6.4-8.3)
[2017-11-19 18:33] LABS: Troponin I Only 0.171 NG/ML (0.00-0.045)
[2017-11-19 18:58] LABS: Apearance,Urine CLEAR (Clear); Bilirubin,Urine Negative (Negative); Blood, Urine Negative (Negative); Glucose,Urine (UA) 150 mg/dL (Negative); Ketones,Urine Negative (Negative); Nitrite,Urine Negative (Negative); Protein,Urine 100 MG/DL; Squamous Epithelial Cell,Urine Occasional /HPF (0-10); Urine Color Straw (Yellow); Urine Specific Gravity 1.008 (1.001-1.035); Urine Urobilinogen < 2.0 EU/DL (0.2-1.0); WBC,Urine 2 /HPF (0-6)
[2017-11-19] MEDS ORDERED: LORazepam 2 MG/1 ML VIAL ONE (18:59)
[2017-11-19] MEDS ORDERED: METOPROLOL TARTRATE 50 MG TABLET PO STA (19:43)
[2017-11-19] MEDS ORDERED: METOPROLOL TARTRATE 50 MG TABLET ONE (19:44)
[2017-11-19] MEDS ORDERED: GLUCAGON 1 MG VIAL IM PRN (23:33)
[2017-11-19] MEDS ORDERED: ENOXAPARIN 30 MG/0.3 ML SYRINGE SUBCUT SCH (23:33)
[2017-11-19] MEDS ORDERED: DEXTROSE 50% 25 GM/50 ML VIAL IV PRN (23:33)
[2017-11-19] MEDS ORDERED: ATORVASTATIN 80 MG TABLET PO SCH (23:33)
[2017-11-19] MEDS ORDERED: ONDANSETRON 4 MG/2 ML VIAL IV PRN (23:33)
[2017-11-19] MEDS ORDERED: ACETAMINOPHEN 325 MG TABLET PO PRN (23:33)
[2017-11-19] MEDS ORDERED: NICOTINE 21 MG/24 HR PATCH TRANSDERM PRN (23:33)
[2017-11-20] MEDS: INSULIN REGULAR 100 UNIT/ML SUBCUT SCH ×3 (01:18→12:20)
[2017-11-20] MEDS: ISOSORBIDE DINITRATE 10 MG TABLET PO SCH ×2 (01:20→09:05)
[2017-11-20] MEDS: DIVALPROEX 250 MG TABLET PO SCH ×2 (01:20→09:05)
[2017-11-20] MEDS: amLODIPine 10 MG TABLET PO SCH ×2 (01:20→09:05)
[2017-11-20 01:45] LABS: Hemoglobin A1C 7.3 % (4.2-6.3)
[2017-11-20 01:54] LABS: Troponin I Only 0.607 NG/ML (0.00-0.045)
[2017-11-20 01:55] LABS: Risk Ratio 1.87; Thyroid Stimulating Hormone 1.89 uIU/ml (0.358-3.74); VLDL CHOLESTEROL 18.6 MG/DL
[2017-11-20 02:07] LABS: Valproic Acid < 3.0 UG/ML (50-100)
[2017-11-20 04:51] LABS: Basophils % 0.2 % (0.0-0.8); Eosinophils # 0.1 10*3/uL (0.0-0.87); Hematocrit 37.4 VOL% (35.7-47.0); Hemoglobin 12.2 GM/DL (12.0-16.0); Immature Granulocytes % 0.2 %; Immature Granulocytes Absolute 0.02 #; Lymphocytes # 2.5 10*3/uL (1.4-4.0); Lymphocytes % 28.7 % (21.3-54.2); Mean Corpuscular HGB Conc 32.6 GM/DL (32-36); Mean Corpuscular Hemoglobin 28 PG (27-34); Mean Corpuscular Volume 87.2 FL (87-102); Monocytes # 0.6 10*3/uL (0.11-0.8); Monocytes % 6.4 % (1.7-12.7); Neutrophils # 5.6 10*3/uL (1.4-7.4); Neutrophils % 63.5 % (38.7-73.9); Platelet Count 166 T/CUMM (130-400); Red Blood Count 4.29 MC/CUMM (3.8-5.5); Red Cell Distribution Width 14.7 % (9.3-17.3); White Blood Count 8.8 T/CUMM (4-12)
[2017-11-20 05:27] LABS: Troponin I Only 0.473 NG/ML (0.00-0.045)
[2017-11-20 05:43] LABS: Bilirubin,Total 0.4 MG/DL (0.2-1.0); Calcium 8.9 MG/DL (8.5-10.1); Osmolality,Calculated 288.5 MOS/KG (273-304); Potassium 4.5 MMOL/L (3.5-5.1); Total Protein 6.7 G/DL (6.4-8.3)
[2017-11-20] MEDS ORDERED: [UNRECOGNIZED DRUG - OTHER] SUBCUT SCH (07:30)
[2017-11-20] MEDS ORDERED: REG INSULIN SUBCUT SCH (07:30)
[2017-11-20] MEDS ORDERED: INSULIN NPH HUM SUBCUT SCH (07:30)
[2017-11-20] MEDS ORDERED: FERROUS SULFATE 325 MG TABLET PO SCH (09:00)
[2017-11-20] MEDS ORDERED: FOLIC ACID 1 MG TABLET PO SCH (09:00)
[2017-11-20] MEDS ORDERED: METOPROLOL SUCCINATE XL 50 MG TABLET PO SCH (09:00)
[2017-11-20] MEDS ORDERED: ASPIRIN EC 81 MG TABLET PO SCH (09:00)
[2017-11-20 09:04] VITALS: BP 134/92
== END 2017-11-20 13:57 | disposition home or self-care (01) | DRG 199 ==
LOC: N.ED 16:23 → N.EDINP 21:10 → N.TELES 21:12
PROVIDERS: ADMIT Internal Medicine Geriatric Medicine; ATTEND Internal Medicine Geriatric Medicine

== ENCOUNTER 2018-10-09 10:55 | Inpatient (IN) ==
[2018-10-09] MEDS ORDERED: SODIUM CHLORIDE 0.9% 1,000 ML IV STA (12:43)
[2018-10-09] MEDS ORDERED: ONDANSETRON 4 MG/2 ML VIAL IV STA ×2 (12:43→15:20)
[2018-10-09 13:52] LABS: Basophils # 0.1 10*3/uL (0.0-0.2); Basophils % 0.4 % (0.0-0.8); Hematocrit 45.8 VOL% (35.7-47.0); Hemoglobin 14.7 GM/DL (12.0-16.0); Immature Granulocytes % 0.5 %; Immature Granulocytes Absolute 0.08 #; Lymphocytes # 1.2 10*3/uL (1.4-4.0); Lymphocytes % 7.4 % (21.3-54.2); Mean Corpuscular HGB Conc 32.1 GM/DL (32-36); Mean Corpuscular Hemoglobin 27 PG (27-34); Mean Corpuscular Volume 84.5 FL (87-102); Mean Platelet Volume 13.9 FL (9.6-12.0); Monocytes # 0.3 10*3/uL (0.11-0.8); Monocytes % 1.9 % (1.7-12.7); Neutrophils # 14.7 10*3/uL (1.4-7.4); Neutrophils % 89.8 % (38.7-73.9); Platelet Count 249 T/CUMM (130-400); Red Blood Count 5.42 MC/CUMM (3.8-5.5); Red Cell Distribution Width 16.1 % (9.3-17.3); White Blood Count 16.4 T/CUMM (4-12)
[2018-10-09 14:01] LABS: Apearance,Urine Slightly Hazy (Clear); Bacteria,Urine Occasional /HPF (Few); Bilirubin,Urine Negative (Negative); Blood, Urine Negative (Negative); Glucose,Urine (UA) 50 mg/dL (Negative); Hyaline Casts,Urine 7 /LPF (0-3); Ketones,Urine 5 mg/dL (Negative); Nitrite,Urine Negative (Negative); Protein,Urine 100 MG/DL; RBC,Urine 3 /HPF (0-4); Squamous Epithelial Cell,Urine Occasional /HPF (0-10); Urine Color Yellow (Yellow); Urine Specific Gravity 1.016 (1.001-1.035); Urine Urobilinogen < 2.0 EU/DL (0.2-1.0); WBC,Urine 1 /HPF (0-6)
[2018-10-09 14:18] LABS: Albumin 3.5 G/DL (3.4-5.0); Bilirubin,Total 0.6 MG/DL (0.2-1.0); Osmolality,Calculated 291.8 MOS/KG (273-304); Potassium 3.6 MMOL/L (3.5-5.1); Total Protein 9.8 G/DL (6.4-8.3)
[2018-10-09] MEDS ORDERED: hydrALAZINE 20 MG/1 ML VIAL IV STA ×2 (14:26→16:53)
[2018-10-09] MEDS ORDERED: SODIUM CHLORIDE 0.9% 500 ML IV STA (14:27)
[2018-10-09] MEDS ORDERED: LEVOFLOXACIN INJ 500 MG in PREMIX 1 EACH IV STA (14:57)
[2018-10-09 16:11] LABS: Barbiturates Screen,Urine Negative (Negative); Benzodiazepines Screen,Urine Negative (Negative); Cannabinoid Screen,Urine Negative (Negative); Opiate Screen,Urine Negative (Negative); Phencyclidine Screen,Urine Negative (Negative)
[2018-10-09] MEDS ORDERED: PANTOPRAZOLE INJ 80 MG in SODIUM CHLORIDE 0.9% 100 ML IV ONE (16:53)
[2018-10-09] MEDS ORDERED: SODIUM CHLORIDE 0.9% 100 ML IV ONE (16:57)
[2018-10-09] MEDS ORDERED: PANTOPRAZOLE 40 MG VIAL IV ONE (16:57)
[2018-10-09] MEDS ORDERED: LABETALOL 20 MG/4 ML SYRINGE IV STA (17:46)
[2018-10-09] MEDS ORDERED: ONDANSETRON 4 MG/2 ML VIAL IV PRN (17:48)
[2018-10-09] MEDS ORDERED: LABETALOL 20 MG/4 ML SYRINGE IV PRN (17:52)
[2018-10-09] MEDS ORDERED: cloNIDine 0.3 MG/24 HR PATCH TRANSDERM SCH (18:00)
[2018-10-09] MEDS ORDERED: DEXTROSE 50% 25 GM/50 ML SYRINGE IV PRN (18:02)
[2018-10-09] MEDS ORDERED: GLUCAGON 1 MG VIAL IM PRN (18:02)
[2018-10-09] MEDS ORDERED: INSULIN REGULAR 100 UNIT/ML IV STA (18:02)
[2018-10-09] MEDS: INSULIN NPH/REGULAR 70/30 100 UNIT/ML SUBCUT SCH (19:45)
[2018-10-09 21:43] LABS: Hematocrit 41.8 VOL% (35.7-47.0); Hemoglobin 13.5 GM/DL (12.0-16.0)
[2018-10-09] MEDS: SODIUM CHLORIDE 0.9% 1,000 ML IV SCH (22:01)
[2018-10-09] MEDS: NITROGLYCERIN 2% OINT 1 INCH/GM PACK TOP SCH (22:03)
[2018-10-09] MEDS: PANTOPRAZOLE 40 MG VIAL IV SCH (22:10)
[2018-10-10] MEDS: NITROGLYCERIN 2% OINT 1 INCH/GM PACK TOP SCH ×3 (00:06→11:33)
[2018-10-10 00:09] LABS: Hematocrit 39.9 VOL% (35.7-47.0); Hemoglobin 12.7 GM/DL (12.0-16.0)
[2018-10-10] MEDS: SODIUM CHLORIDE 0.9% 1,000 ML IV SCH ×3 (00:35→13:41)
[2018-10-10] MEDS: INSULIN REGULAR 100 UNIT/ML SUBCUT SCH ×4 (01:26→17:49)
[2018-10-10] MEDS ORDERED: hydrALAZINE 20 MG/1 ML VIAL IV ONE (03:13)
[2018-10-10] MEDS ORDERED: niCARdipine 25 MG/10 ML VIAL IV ONE (05:33)
[2018-10-10] MEDS: niCARdipine INJ 25 MG in SODIUM CHLORIDE 0.9% 240 ML IV PRN ×3 (06:00→13:52)
[2018-10-10 06:08] LABS: Basophils % 0.2 % (0.0-0.8); Hematocrit 39.4 VOL% (35.7-47.0); Hemoglobin 12.4 GM/DL (12.0-16.0); Immature Granulocytes % 0.6 %; Immature Granulocytes Absolute 0.08 #; Lymphocytes % 15.7 % (21.3-54.2); Mean Corpuscular HGB Conc 31.5 GM/DL (32-36); Mean Corpuscular Hemoglobin 27 PG (27-34); Mean Corpuscular Volume 85.5 FL (87-102); Mean Platelet Volume 13.9 FL (9.6-12.0); Monocytes # 0.7 10*3/uL (0.11-0.8); Neutrophils # 9.6 10*3/uL (1.4-7.4); Neutrophils % 77.5 % (38.7-73.9); Platelet Count 199 T/CUMM (130-400); Red Blood Count 4.61 MC/CUMM (3.8-5.5); Red Cell Distribution Width 16.1 % (9.3-17.3); White Blood Count 12.4 T/CUMM (4-12)
[2018-10-10 06:49] LABS: Osmolality,Calculated 292.5 MOS/KG (273-304); Potassium 3.4 MMOL/L (3.5-5.1); Thyroid Stimulating Hormone 0.423 uIU/ml (0.358-3.74)
[2018-10-10] MEDS: INSULIN NPH/REGULAR 70/30 100 UNIT/ML SUBCUT SCH ×2 (08:38→16:55)
[2018-10-10] MEDS ORDERED: NON-FORMULARY MEDICATION (Liraglutide [Victoza 2-Pak] 0.6 MG) SUBCUT SCH (09:00)
[2018-10-10] MEDS ORDERED: SPIRONOLACTONE 25 MG TABLET PO SCH (09:00)
[2018-10-10] MEDS: PANTOPRAZOLE 40 MG VIAL IV SCH (09:08)
[2018-10-10 11:49] LABS: Hematocrit 38.8 VOL% (35.7-47.0); Hemoglobin 12.2 GM/DL (12.0-16.0)
[2018-10-10] MEDS: niCARdipine INJ 50 MG in SODIUM CHLORIDE 0.9% 480 ML IV PRN (13:51)
[2018-10-10] MEDS ORDERED: ONDANSETRON ODT 4 MG TABLET PO PRN (17:13)
[2018-10-10] MEDS: hydrALAZINE 25 MG TABLET PO PRN (17:49)
[2018-10-10] MEDS: NIFEdipine 10 MG CAPSULE PO PRN (18:40)
[2018-10-10] MEDS: PANTOPRAZOLE 40 MG TABLET PO SCH (21:17)
[2018-10-10] MEDS: SPIRONOLACTONE 25 MG TABLET PO SCH (21:17)
[2018-10-10] MEDS: ZALEPLON 5 MG CAPSULE PO PRN (23:08)
[2018-10-11] MEDS: INSULIN REGULAR 100 UNIT/ML SUBCUT SCH ×5 (00:17→23:49)
[2018-10-11] MEDS: NIFEdipine 10 MG CAPSULE PO PRN (00:40)
[2018-10-11] MEDS: hydrALAZINE 25 MG TABLET PO PRN ×3 (00:40→23:40)
[2018-10-11] MEDS ORDERED: LORazepam 2 MG/1 ML VIAL IV ONE (01:28)
[2018-10-11] MEDS: niCARdipine INJ 50 MG in SODIUM CHLORIDE 0.9% 480 ML IV PRN (01:54)
[2018-10-11] MEDS: CARVEDILOL 3.125 MG TABLET PO SCH ×3 (03:41→21:25)
[2018-10-11 03:57] LABS: Basophils % 0.3 % (0.0-0.8); Eosinophils % 0.2 % (0.00-10.9); Hemoglobin 12.3 GM/DL (12.0-16.0); Immature Granulocytes % 0.3 %; Immature Granulocytes Absolute 0.04 #; Lymphocytes # 2.3 10*3/uL (1.4-4.0); Lymphocytes % 19.5 % (21.3-54.2); Mean Corpuscular HGB Conc 31.5 GM/DL (32-36); Mean Corpuscular Hemoglobin 27 PG (27-34); Mean Corpuscular Volume 85.3 FL (87-102); Monocytes # 0.6 10*3/uL (0.11-0.8); Neutrophils # 8.9 10*3/uL (1.4-7.4); Neutrophils % 74.7 % (38.7-73.9); Platelet Count 177 T/CUMM (130-400); Red Blood Count 4.57 MC/CUMM (3.8-5.5); Red Cell Distribution Width 16.1 % (9.3-17.3); White Blood Count 11.9 T/CUMM (4-12)
[2018-10-11 04:29] LABS: Calcium 8.6 MG/DL (8.5-10.1); Osmolality,Calculated 286.7 MOS/KG (273-304); Potassium 3.4 MMOL/L (3.5-5.1)
[2018-10-11] MEDS: INSULIN NPH/REGULAR 70/30 100 UNIT/ML SUBCUT SCH ×2 (08:45→16:12)
[2018-10-11] MEDS: SPIRONOLACTONE 25 MG TABLET PO SCH (08:46)
[2018-10-11] MEDS: PANTOPRAZOLE 40 MG TABLET PO SCH ×2 (08:46→21:23)
[2018-10-11] MEDS: SPIRONOLACTONE 50 MG TABLET PO SCH (21:23)
[2018-10-11] MEDS: ZALEPLON 5 MG CAPSULE PO PRN (21:25)
[2018-10-12] MEDS: NIFEdipine 10 MG CAPSULE PO PRN ×2 (00:59→05:12)
[2018-10-12] MEDS ORDERED: hydrALAZINE 20 MG/1 ML VIAL IV PRN (05:06)
[2018-10-12 05:35] LABS: Calcium 9.1 MG/DL (8.5-10.1); Osmolality,Calculated 273.2 MOS/KG (273-304); Potassium 3.7 MMOL/L (3.5-5.1)
[2018-10-12] MEDS: INSULIN REGULAR 100 UNIT/ML SUBCUT SCH ×2 (06:09→12:11)
[2018-10-12] MEDS ORDERED: MAGNESIUM SULF RIDER 2 GM in PREMIX 1 EACH IV ONE (07:16)
[2018-10-12] MEDS: INSULIN NPH/REGULAR 70/30 100 UNIT/ML SUBCUT SCH (08:19)
[2018-10-12] MEDS: PANTOPRAZOLE 40 MG TABLET PO SCH (08:19)
[2018-10-12] MEDS: CARVEDILOL 3.125 MG TABLET PO SCH (08:20)
[2018-10-12] MEDS: SPIRONOLACTONE 50 MG TABLET PO SCH (08:20)
[2018-10-12] MEDS ORDERED: ASPIRIN EC 81 MG TABLET PO SCH (11:30)
[2018-10-12] MEDS ORDERED: amLODIPine 10 MG TABLET PO SCH (11:30)
[2018-10-12 12:14] VITALS: BP 159/96
[2018-10-12] MEDS ORDERED: hydrALAZINE 25 MG TABLET PO SCH (15:00)
[2018-10-12] MEDS ORDERED: hydroCHLOROthiazide 12.5 MG CAPSULE PO SCH (21:00)
[2018-10-12] MEDS ORDERED: ISOSORBIDE DINITRATE 10 MG TABLET PO SCH (21:00)
[2018-10-13] MEDS ORDERED: FERROUS SULFATE 325 MG TABLET PO SCH (09:00)
== END 2018-10-12 12:48 | disposition home or self-care (01) | DRG 199 ==
LOC: N.ED 10:55 → N.EDINP 10:55 → SUATTDRO 17:48 → N.3E 18:48 → N.ICU 10-10 05:33 → N.2E 10-11 14:24
PROVIDERS: ADMIT Internal Medicine; ATTEND Internal Medicine

== ENCOUNTER 2019-10-03 02:03 | Inpatient (IN) ==
[2019-10-03] MEDS ORDERED: NITROGLYCERIN SL 0.4 MG TABLET SL STA (02:43)
[2019-10-03] MEDS ORDERED: ASPIRIN CHEW 81 MG TABLET PO STA (02:43)
[2019-10-03] MEDS ORDERED: ASPIRIN 325 MG TABLET ONE (02:54)
[2019-10-03 02:58] LABS: Basophils % 0.3 % (0.0-0.8); Eosinophils # 0.3 10*3/uL (0.0-0.87); Eosinophils % 2.1 % (0.00-10.9); Hematocrit 39.2 VOL% (35.7-47.0); Hemoglobin 12.1 GM/DL (12.0-16.0); Immature Granulocytes % 0.9 %; Immature Granulocytes Absolute 0.11 #; Lymphocytes # 2.2 10*3/uL (1.4-4.0); Lymphocytes % 18.8 % (21.3-54.2); Mean Corpuscular HGB Conc 30.9 GM/DL (32-36); Mean Corpuscular Volume 83.8 FL (87-102); Monocytes % 4.9 % (1.7-12.7); Platelet Count 163 T/CUMM (130-400); Red Blood Count 4.68 MC/CUMM (3.8-5.5); Red Cell Distribution Width 16.3 % (9.3-17.3); White Blood Count 11.8 T/CUMM (4-12)
[2019-10-03 03:08] LABS: Alanine Aminotransferase 19 U/L (13-56); Albumin 2.8 G/DL (3.4-5.0); Alkaline Phosphatase 217 U/L (45-117); Aspartate Amino Transferase 28 U/L (0-37); Bilirubin,Total < 0.39 MG/DL (0.2-1.0); Blood Urea Nitrogen 44 MG/DL (7-18); Calcium 8.5 MG/DL (8.5-10.1); Estimated Glom Filtration Rate 25 ML/MIN; Glucose 286 MG/DL (74-106); Osmolality,Calculated 295.7 MOS/KG (273-304); Total Protein 6.9 G/DL (6.4-8.3)
[2019-10-03] MEDS ORDERED: ENOXAPARIN 40 MG/0.4 ML SYRINGE SUBCUT STA (03:44)
[2019-10-03] MEDS ORDERED: hydrALAZINE 20 MG/1 ML VIAL IV STA ×2 (04:10→04:15)
[2019-10-03] MEDS ORDERED: hydrALAZINE 20 MG/1 ML VIAL IV PRN (04:58)
[2019-10-03] MEDS ORDERED: GLUCAGON 1 MG VIAL IM PRN ×2 (05:14)
[2019-10-03] MEDS ORDERED: ONDANSETRON 4 MG/2 ML VIAL IV PRN (05:14)
[2019-10-03] MEDS ORDERED: MORPHINE 4 MG/1 ML VIAL IV PRN (05:14)
[2019-10-03] MEDS ORDERED: DEXTROSE 50% 25 GM/50 ML SYRINGE IV PRN (05:14)
[2019-10-03] MEDS ORDERED: NITROGLYCERIN SL 0.4 MG TABLET SL PRN (05:14)
[2019-10-03] MEDS ORDERED: BISACODYL 5 MG TABLET PO PRN (05:14)
[2019-10-03] MEDS ORDERED: DEXTROSE 50% 25 GM/50 ML VIAL IV PRN (05:14)
[2019-10-03] MEDS ORDERED: ENOXAPARIN 80 MG/0.8 ML SYRINGE SUBCUT ONE (05:14)
[2019-10-03] MEDS ORDERED: METOPROLOL TARTRATE 5 MG/5 ML VIAL IV ONE (07:01)
[2019-10-03] MEDS ORDERED: MAGNESIUM SULF RIDER 2 GM in PREMIX 1 EACH IV PRN (07:47)
[2019-10-03] MEDS ORDERED: MAGNESIUM SULF RIDER 4 GM in PREMIX 1 EACH IV PRN (07:47)
[2019-10-03 07:59] LABS: Risk Ratio 1.92
[2019-10-03] MEDS ORDERED: carvediloL 6.25 MG TABLET PO SCH (08:00)
[2019-10-03 08:02] LABS: Thyroid Stimulating Hormone 2.89 uIU/ml (0.358-3.74)
[2019-10-03] MEDS: INSULIN LISPRO 100 UNIT/ML SUBCUT SCH ×4 (08:22→20:26)
[2019-10-03] MEDS: METOPROLOL TARTRATE 5 MG/5 ML VIAL IV SCH ×3 (08:41→08:43)
[2019-10-03] MEDS ORDERED: cloNIDine 0.3 MG/24 HR PATCH TRANSDERM SCH (09:00)
[2019-10-03] MEDS: ASPIRIN EC 81 MG TABLET PO SCH (09:27)
[2019-10-03] MEDS: ISOSORBIDE DINITRATE 10 MG TABLET PO SCH ×2 (09:27→22:12)
[2019-10-03] MEDS: PANTOPRAZOLE 40 MG TABLET PO SCH ×2 (09:27→22:13)
[2019-10-03] MEDS: FERROUS SULFATE 325 MG TABLET PO SCH (09:27)
[2019-10-03] MEDS: NICOTINE 21 MG/24 HR PATCH TRANSDERM SCH (09:28)
[2019-10-03] MEDS: METOPROLOL TARTRATE 25 MG TABLET PO SCH ×2 (09:28→22:13)
[2019-10-03] MEDS: INSULIN NPH/REGULAR 70/30 100 UNIT/ML SUBCUT SCH ×2 (09:36→16:56)
[2019-10-03] MEDS ORDERED: hydrALAZINE 25 MG TABLET ONE (15:22)
[2019-10-03 16:44] LABS: Barbiturates Screen,Urine Negative (Negative); Benzodiazepines Screen,Urine Negative (Negative); Cannabinoid Screen,Urine Negative (Negative); Opiate Screen,Urine Negative (Negative); Phencyclidine Screen,Urine Negative (Negative)
[2019-10-03] MEDS: VERAPAMIL 80 MG TABLET PO SCH (22:12)
[2019-10-03] MEDS: ATORVASTATIN 80 MG TABLET PO SCH (22:13)
[2019-10-04 06:11] LABS: Basophils % 0.2 % (0.0-0.8); Eosinophils # 0.2 10*3/uL (0.0-0.87); Eosinophils % 2.3 % (0.00-10.9); Hemoglobin 13.2 GM/DL (12.0-16.0); Immature Granulocytes % 0.2 %; Immature Granulocytes Absolute 0.02 #; Lymphocytes % 22.3 % (21.3-54.2); Mean Corpuscular HGB Conc 31.4 GM/DL (32-36); Mean Corpuscular Volume 82.7 FL (87-102); Monocytes % 6.2 % (1.7-12.7); Neutrophils % 68.8 % (38.7-73.9); Platelet Count 126 T/CUMM (130-400); Red Blood Count 5.08 MC/CUMM (3.8-5.5); Red Cell Distribution Width 16.6 % (9.3-17.3); White Blood Count 8.8 T/CUMM (4-12)
[2019-10-04 06:24] LABS: Calcium 8.6 MG/DL (8.5-10.1); Osmolality,Calculated 291.1 MOS/KG (273-304)
[2019-10-04] MEDS ORDERED: SODIUM CHLORIDE 0.9% 500 ML IV ONE (08:53)
[2019-10-04] MEDS ORDERED: SODIUM CHLORIDE 0.9% 1,000 ML IV SCH (09:00)
[2019-10-04] MEDS: INSULIN LISPRO 100 UNIT/ML SUBCUT SCH ×4 (09:42→21:27)
[2019-10-04] MEDS: INSULIN NPH/REGULAR 70/30 100 UNIT/ML SUBCUT SCH ×2 (09:44→19:09)
[2019-10-04] MEDS: PANTOPRAZOLE 40 MG TABLET PO SCH ×2 (09:46→21:22)
[2019-10-04] MEDS: METOPROLOL TARTRATE 25 MG TABLET PO SCH ×2 (09:46→21:23)
[2019-10-04] MEDS: ISOSORBIDE DINITRATE 10 MG TABLET PO SCH ×2 (09:46→21:22)
[2019-10-04] MEDS: VERAPAMIL 80 MG TABLET PO SCH ×3 (09:46→21:22)
[2019-10-04] MEDS: NICOTINE 21 MG/24 HR PATCH TRANSDERM SCH (09:46)
[2019-10-04] MEDS: ASPIRIN EC 81 MG TABLET PO SCH (09:46)
[2019-10-04] MEDS: FERROUS SULFATE 325 MG TABLET PO SCH (09:46)
[2019-10-04] MEDS: ATORVASTATIN 80 MG TABLET PO SCH (21:22)
[2019-10-05 05:14] LABS: Calcium 8.9 MG/DL (8.5-10.1); Osmolality,Calculated 285.7 MOS/KG (273-304)
[2019-10-05 07:54] VITALS: BP 159/94
[2019-10-05] MEDS: PANTOPRAZOLE 40 MG TABLET PO SCH (09:30)
[2019-10-05] MEDS: ISOSORBIDE DINITRATE 10 MG TABLET PO SCH (09:30)
[2019-10-05] MEDS: ASPIRIN EC 81 MG TABLET PO SCH (09:31)
[2019-10-05] MEDS: NICOTINE 21 MG/24 HR PATCH TRANSDERM SCH (09:31)
[2019-10-05] MEDS: VERAPAMIL 80 MG TABLET PO SCH (09:31)
[2019-10-05] MEDS: FERROUS SULFATE 325 MG TABLET PO SCH (09:31)
[2019-10-05] MEDS: INSULIN NPH/REGULAR 70/30 100 UNIT/ML SUBCUT SCH (09:32)
[2019-10-05] MEDS: INSULIN LISPRO 100 UNIT/ML SUBCUT SCH (09:32)
[2019-10-05] MEDS: METOPROLOL TARTRATE 25 MG TABLET PO SCH (10:41)
== END 2019-10-05 11:23 | disposition home or self-care (01) | DRG 774 ==
LOC: EDUNIT# → EDBD → N.ED 02:03 → N.EDINP 02:03 → N.TELEN 06:01
PROVIDERS: ADMIT Internal Medicine; ATTEND Internal Medicine

== ENCOUNTER 2019-10-31 21:31 | Inpatient (IN) ==
[2019-10-31] MEDS ORDERED: ADENOSINE 6 MG/2 ML VIAL ONE (21:55)
[2019-10-31] MEDS ORDERED: ADENOSINE 6 MG/2 ML VIAL IV STA (22:09)
[2019-10-31] MEDS ORDERED: LABETALOL 20 MG/4 ML SYRINGE IV STA (22:09)
[2019-10-31 22:52] LABS: Basophils % 0.3 % (0.0-0.8); Eosinophils # 0.1 10*3/uL (0.0-0.87); Hematocrit 38.4 VOL% (35.7-47.0); Hemoglobin 11.9 GM/DL (12.0-16.0); Immature Granulocytes % 0.3 %; Immature Granulocytes Absolute 0.04 #; Lymphocytes # 2.2 10*3/uL (1.4-4.0); Lymphocytes % 18.8 % (21.3-54.2); Mean Corpuscular Volume 82.4 FL (87-102); Monocytes % 5.2 % (1.7-12.7); Neutrophils % 74.4 % (38.7-73.9); Platelet Count 187 T/CUMM (130-400); Red Blood Count 4.66 MC/CUMM (3.8-5.5); Red Cell Distribution Width 16.8 % (9.3-17.3); White Blood Count 11.7 T/CUMM (4-12)
[2019-10-31 22:55] LABS: Apearance,Urine CLEAR (Clear); Bacteria,Urine Occasional /HPF (Few); Bilirubin,Urine Negative (Negative); Blood, Urine Negative (Negative); Glucose,Urine (UA) 50 mg/dL (Negative); Hyaline Casts,Urine 1 /LPF (0-3); Ketones,Urine Negative (Negative); Mucus,Urine Occasional /LPF (Occasional); Nitrite,Urine Negative (Negative); Protein,Urine 100 MG/DL; RBC,Urine 2 /HPF (0-4); Squamous Epithelial Cell,Urine Occasional /HPF (0-10); Urine Color Yellow (Yellow); Urine Urobilinogen < 2.0 EU/DL (0.2-1.0); WBC,Urine 2 /HPF (0-6)
[2019-10-31 23:02] LABS: Barbiturates Screen,Urine Negative (Negative); Benzodiazepines Screen,Urine Negative (Negative); Cannabinoid Screen,Urine Negative (Negative); Opiate Screen,Urine Negative (Negative); Phencyclidine Screen,Urine Negative (Negative)
[2019-10-31 23:07] LABS: Alanine Aminotransferase 16 U/L (13-56); Albumin 2.7 G/DL (3.4-5.0); Alkaline Phosphatase 184 U/L (45-117); Aspartate Amino Transferase 23 U/L (0-37); Bilirubin,Total < 0.39 MG/DL (0.2-1.0); Blood Urea Nitrogen 51 MG/DL (7-18); Calcium 8.8 MG/DL (8.5-10.1); Estimated Glom Filtration Rate 22 ML/MIN; Glucose 226 MG/DL (74-106); INR 0.9; Osmolality,Calculated 293.8 MOS/KG (273-304); PT Patient Result 9.6 SECS (9.6-12.2); Partial Thromboplastin Time 24.5 SECS (20.8-36.0)
[2019-10-31] MEDS ORDERED: ASPIRIN 325 MG TABLET PO STA (23:24)
[2019-10-31] MEDS ORDERED: ENOXAPARIN 30 MG/0.3 ML SYRINGE SUBCUT STA (23:24)
[2019-10-31] MEDS ORDERED: ENOXAPARIN 100 MG/ML SYRINGE SUBCUT ONE (23:31)
[2019-11-01] MEDS ORDERED: METOPROLOL TARTRATE 5 MG/5 ML VIAL IV ONE (00:07)
[2019-11-01] MEDS ORDERED: ADENOSINE 6 MG/2 ML VIAL IV STA ×3 (01:16→01:28)
[2019-11-01] MEDS ORDERED: LABETALOL 20 MG/4 ML SYRINGE IV STA (01:16)
[2019-11-01] MEDS ORDERED: SODIUM CHLORIDE 0.9% 1,000 ML IV STA ×2 (01:16→06:08)
[2019-11-01] MEDS ORDERED: METOPROLOL TARTRATE 5 MG/5 ML VIAL IV STA ×2 (01:28→01:29)
[2019-11-01] MEDS ORDERED: DOCUSATE SODIUM 100 MG CAPSULE PO PRN (01:52)
[2019-11-01] MEDS ORDERED: ACETAMINOPHEN 325 MG TABLET PO PRN (01:52)
[2019-11-01] MEDS ORDERED: MORPHINE 4 MG/1 ML VIAL IV PRN (01:52)
[2019-11-01] MEDS ORDERED: ONDANSETRON 4 MG/2 ML VIAL IV PRN (01:52)
[2019-11-01] MEDS ORDERED: ZALEPLON 5 MG CAPSULE PO PRN (01:52)
[2019-11-01] MEDS ORDERED: guaiFENesin/DM ER 600-30 MG TABLET PO PRN (01:52)
[2019-11-01] MEDS ORDERED: PROMETHAZINE 25 MG TABLET PO PRN (01:52)
[2019-11-01] MEDS ORDERED: diphenhydrAMINE CAP 25 MG CAPSULE PO PRN (01:52)
[2019-11-01] MEDS ORDERED: ENOXAPARIN 40 MG/0.4 ML SYRINGE SUBCUT SCH (02:00)
[2019-11-01] MEDS ORDERED: hydrALAZINE 20 MG/1 ML VIAL IV PRN (02:13)
[2019-11-01] MEDS ORDERED: DEXTROSE 50% 25 GM/50 ML SYRINGE IV PRN (02:15)
[2019-11-01] MEDS ORDERED: GLUCAGON 1 MG VIAL IM PRN (02:15)
[2019-11-01] MEDS ORDERED: DEXTROSE 10% 25 GM/250 ML BAG IV PRN (02:26)
[2019-11-01] MEDS ORDERED: DEXTROSE 10% 250 ML IV PRN (02:30)
[2019-11-01] MEDS ORDERED: INFLUENZA VIRUS VACCINE 0.5 ML SYRINGE IM ONE (05:25)
[2019-11-01 05:40] LABS: Basophils % 0.4 % (0.0-0.8); Eosinophils # 0.1 10*3/uL (0.0-0.87); Eosinophils % 1.2 % (0.00-10.9); Hematocrit 36.4 VOL% (35.7-47.0); Hemoglobin 11.1 GM/DL (12.0-16.0); Immature Granulocytes % 0.2 %; Immature Granulocytes Absolute 0.02 #; Lymphocytes # 3.4 10*3/uL (1.4-4.0); Lymphocytes % 29.8 % (21.3-54.2); Mean Corpuscular HGB Conc 30.5 GM/DL (32-36); Mean Corpuscular Volume 83.9 FL (87-102); Monocytes % 5.4 % (1.7-12.7); Platelet Count 171 T/CUMM (130-400); Red Blood Count 4.34 MC/CUMM (3.8-5.5); Red Cell Distribution Width 16.8 % (9.3-17.3); White Blood Count 11.3 T/CUMM (4-12)
[2019-11-01] MEDS ORDERED: METOPROLOL TARTRATE 5 MG/5 ML VIAL IV SCH (06:00)
[2019-11-01] MEDS ORDERED: ADENOSINE 6 MG/2 ML VIAL IV ONE (06:08)
[2019-11-01] MEDS: SODIUM CHLORIDE 0.9% 1,000 ML IV SCH ×2 (06:26→16:21)
[2019-11-01 06:34] LABS: Albumin 2.4 G/DL (3.4-5.0); Bilirubin,Total 0.5 MG/DL (0.2-1.0); Calcium 8.3 MG/DL (8.5-10.1); Osmolality,Calculated 290.5 MOS/KG (273-304); Risk Ratio 1.93; Thyroid Stimulating Hormone 2.3 uIU/ml (0.358-3.74); Total Protein 6.9 G/DL (6.4-8.3); VLDL CHOLESTEROL 9.4 MG/DL
[2019-11-01] MEDS: PANTOPRAZOLE 40 MG TABLET PO SCH (08:36)
[2019-11-01] MEDS: INSULIN LISPRO 100 UNIT/ML SUBCUT SCH ×4 (08:36→21:53)
[2019-11-01] MEDS ORDERED: POTASSIUM CHLORIDE 20 MEQ TABLET PO ONE (09:14)
[2019-11-01] MEDS ORDERED: METOPROLOL TARTRATE 5 MG/5 ML VIAL IV PRN (09:42)
[2019-11-01] MEDS: VERAPAMIL 80 MG TABLET PO SCH ×3 (10:25→21:52)
[2019-11-01] MEDS ORDERED: hydroCHLOROthiazide 12.5 MG CAPSULE PO SCH (21:00)
[2019-11-01] MEDS: ISOSORBIDE DINITRATE 10 MG TABLET PO SCH (21:53)
[2019-11-01] MEDS: ATORVASTATIN 80 MG TABLET PO SCH (21:53)
[2019-11-02] MEDS: SODIUM CHLORIDE 0.9% 1,000 ML IV SCH ×2 (05:25→17:17)
[2019-11-02] MEDS: PANTOPRAZOLE 40 MG TABLET PO SCH (09:54)
[2019-11-02] MEDS: VERAPAMIL 80 MG TABLET PO SCH ×3 (09:54→22:04)
[2019-11-02] MEDS: METOPROLOL SUCCINATE XL 50 MG TABLET PO SCH (09:54)
[2019-11-02] MEDS: ASPIRIN EC 81 MG TABLET PO SCH (09:54)
[2019-11-02] MEDS: ISOSORBIDE DINITRATE 10 MG TABLET PO SCH ×2 (09:54→22:04)
[2019-11-02] MEDS: INSULIN LISPRO 100 UNIT/ML SUBCUT SCH ×4 (09:54→22:03)
[2019-11-02 10:09] LABS: Calcium 9.2 MG/DL (8.5-10.1); Osmolality,Calculated 284.1 MOS/KG (273-304)
[2019-11-02] MEDS: ATORVASTATIN 80 MG TABLET PO SCH (22:03)
[2019-11-03 05:20] LABS: Basophils % 0.3 % (0.0-0.8); Eosinophils # 0.3 10*3/uL (0.0-0.87); Eosinophils % 3.6 % (0.00-10.9); Hemoglobin 12.7 GM/DL (12.0-16.0); Immature Granulocytes % 0.2 %; Immature Granulocytes Absolute 0.02 #; Lymphocytes # 2.5 10*3/uL (1.4-4.0); Lymphocytes % 29.2 % (21.3-54.2); Mean Corpuscular HGB Conc 30.2 GM/DL (32-36); Monocytes % 5.2 % (1.7-12.7); Neutrophils % 61.5 % (38.7-73.9); Platelet Count 183 T/CUMM (130-400); Red Cell Distribution Width 17.2 % (9.3-17.3); White Blood Count 8.7 T/CUMM (4-12)
[2019-11-03 05:36] LABS: Calcium 9.1 MG/DL (8.5-10.1); Osmolality,Calculated 280.2 MOS/KG (273-304)
[2019-11-03 05:51] LABS: Platelet Estimate Adequate
[2019-11-03] MEDS: ASPIRIN EC 81 MG TABLET PO SCH (08:18)
[2019-11-03] MEDS: SODIUM CHLORIDE 0.9% 1,000 ML IV SCH (08:18)
[2019-11-03] MEDS: INSULIN LISPRO 100 UNIT/ML SUBCUT SCH (08:18)
[2019-11-03] MEDS: ISOSORBIDE DINITRATE 10 MG TABLET PO SCH (08:18)
[2019-11-03] MEDS: METOPROLOL SUCCINATE XL 50 MG TABLET PO SCH (08:19)
[2019-11-03] MEDS: VERAPAMIL 80 MG TABLET PO SCH (08:19)
[2019-11-03] MEDS: PANTOPRAZOLE 40 MG TABLET PO SCH (08:19)
[2019-11-03 12:25] VITALS: BP 145/85
[2019-11-08] MEDS ORDERED: cloNIDine 0.3 MG/24 HR PATCH TRANSDERM SCH (09:00)
== END 2019-11-03 14:17 | disposition home or self-care (01) | DRG 201 ==
LOC: N.ED 21:31 → N.EDINP 11-01 02:11 → SUATTDRO 11-01 02:11 → N.TELES 11-01 03:34
PROVIDERS: ADMIT Hospitalist; ATTEND Internal Medicine

== ENCOUNTER 2020-06-22 21:25 | Inpatient (IN) ==
[2020-06-22] MEDS ORDERED: ASPIRIN 325 MG TABLET PO STA (21:41)
[2020-06-22] MEDS ORDERED: NITROGLYCERIN 2% OINT 1 INCH/GM PACK TOP STA (21:57)
[2020-06-22] MEDS ORDERED: ONDANSETRON 4 MG/2 ML VIAL IV STA (21:57)
[2020-06-22] MEDS ORDERED: ALUM/MAG/SIMETH/LIDO VISC 1:1 30 ML BOTTLE PO STA (21:57)
[2020-06-22] MEDS ORDERED: MORPHINE 4 MG/1 ML VIAL IV STA (21:57)
[2020-06-22 22:17] LABS: Basophils % 0.3 % (0.0-0.8); Eosinophils # 0.1 10*3/uL (0.0-0.87); Eosinophils % 0.5 % (0.00-10.9); Hemoglobin 12.6 GM/DL (12.0-16.0); Immature Granulocytes % 0.4 %; Immature Granulocytes Absolute 0.04 #; Lymphocytes # 1.7 10*3/uL (1.4-4.0); Lymphocytes % 17.6 % (21.3-54.2); Mean Corpuscular HGB Conc 30.7 GM/DL (32-36); Mean Corpuscular Volume 86.5 FL (87-102); Monocytes % 5.7 % (1.7-12.7); Neutrophils % 75.5 % (38.7-73.9); Platelet Count 220 T/CUMM (130-400); Red Blood Count 4.74 MC/CUMM (3.8-5.5); Red Cell Distribution Width 15.2 % (9.3-17.3); White Blood Count 9.9 T/CUMM (4-12)
[2020-06-22 22:29] LABS: INR 1.2
[2020-06-23 00:10] LABS: Alanine Aminotransferase 15 U/L (13-56); Albumin 2.7 G/DL (3.4-5.0); Alkaline Phosphatase 289 U/L (45-117); Amylase 32 U/L (25-115); Aspartate Amino Transferase 12 U/L (0-37); Bilirubin,Total < 0.39 MG/DL (0.2-1.0); Blood Urea Nitrogen 52 MG/DL (7-18); Calcium 9.1 MG/DL (8.5-10.1); Estimated Glom Filtration Rate 19 ML/MIN; Osmolality,Calculated 321.6 MOS/KG (273-304); Total Protein 7.7 G/DL (6.4-8.3)
[2020-06-23 00:12] LABS: Glucose 1155 MG/DL (74-106)
[2020-06-23] MEDS ORDERED: INSULIN REGULAR 100 UNIT/ML IV STA (00:16)
[2020-06-23] MEDS ORDERED: INSULIN REGULAR 100 UNIT/ML SUBCUT STA (00:22)
[2020-06-23 00:23] LABS: Apearance,Urine CLEAR (Clear); Bacteria,Urine Occasional /HPF (Few); Bilirubin,Urine Negative (Negative); Blood, Urine Negative (Negative); Glucose,Urine (UA) >=500 mg/dL (Negative); Ketones,Urine Negative (Negative); Nitrite,Urine Negative (Negative); Protein,Urine 30 MG/DL; RBC,Urine 1 /HPF (0-4); Squamous Epithelial Cell,Urine Occasional /HPF (0-10); Urine Color Straw (Yellow); Urine Specific Gravity 1.018 (1.001-1.035); Urine Urobilinogen < 2.0 EU/DL (0.2-1.0); WBC,Urine 1 /HPF (0-6)
[2020-06-23 00:28] LABS: Barbiturates Screen,Urine Negative (Negative); Benzodiazepines Screen,Urine Negative (Negative); Cannabinoid Screen,Urine Negative (Negative); Opiate Screen,Urine Negative (Negative); Phencyclidine Screen,Urine Negative (Negative)
[2020-06-23] MEDS ORDERED: SODIUM BICARB INJ 100 MEQ in STERILE WATER INJ 400 ML IV PRN (01:23)
[2020-06-23] MEDS ORDERED: SODIUM CHLORIDE 0.9% 1,000 ML IV ONE (01:23)
[2020-06-23] MEDS ORDERED: DEXTROSE 50% 25 GM/50 ML VIAL IV PRN ×4 (01:23→10:32)
[2020-06-23] MEDS ORDERED: GLUCAGON 1 MG VIAL IM PRN ×2 (01:23→10:32)
[2020-06-23] MEDS ORDERED: MAGNESIUM SULF RIDER 2 GM in PREMIX 1 EACH IV PRN (01:23)
[2020-06-23] MEDS ORDERED: POTASSIUM CHLORIDE RIDER 10 MEQ in PREMIX 1 EACH IV PRN (01:23)
[2020-06-23] MEDS ORDERED: ACETAMINOPHEN 325 MG TABLET PO PRN (01:23)
[2020-06-23] MEDS ORDERED: ONDANSETRON 4 MG/2 ML VIAL IV PRN (01:23)
[2020-06-23] MEDS ORDERED: MAGNESIUM SULF RIDER 4 GM in PREMIX 1 EACH IV PRN (01:23)
[2020-06-23] MEDS ORDERED: POTASSIUM CHLORIDE RIDER 20 MEQ in PREMIX 1 EACH IV PRN (01:23)
[2020-06-23] MEDS ORDERED: INSULIN REGULAR 100 UNIT/ML IV ONE (01:23)
[2020-06-23] MEDS ORDERED: SODIUM PHOSPHATE INJ 30 MMOL in SODIUM CHLORIDE 0.9% 250 ML IV PRN (01:23)
[2020-06-23] MEDS ORDERED: NITROGLYCERIN SL 0.4 MG TABLET SL PRN (01:31)
[2020-06-23 01:38] LABS: Basophils % 0.2 % (0.0-0.8); Eosinophils # 0.1 10*3/uL (0.0-0.87); Eosinophils % 0.6 % (0.00-10.9); Hematocrit 38.1 VOL% (35.7-47.0); Immature Granulocytes % 0.3 %; Immature Granulocytes Absolute 0.03 #; Lymphocytes # 1.3 10*3/uL (1.4-4.0); Lymphocytes % 15.1 % (21.3-54.2); Mean Corpuscular HGB Conc 31.5 GM/DL (32-36); Mean Corpuscular Volume 84.7 FL (87-102); Monocytes % 6.5 % (1.7-12.7); Neutrophils % 77.3 % (38.7-73.9); Platelet Count 173 T/CUMM (130-400); Red Cell Distribution Width 15.1 % (9.3-17.3); White Blood Count 8.8 T/CUMM (4-12)
[2020-06-23] MEDS ORDERED: INSULIN REGULAR DRIP 100 ML IV SCH ×2 (02:00→03:13)
[2020-06-23 02:13] LABS: Osmolality,Calculated 322.4 MOS/KG (273-304)
[2020-06-23] MEDS: SODIUM CHLORIDE 0.9% 1,000 ML IV SCH ×4 (03:01→21:13)
[2020-06-23] MEDS: ENOXAPARIN 30 MG/0.3 ML SYRINGE SUBCUT SCH (03:01)
[2020-06-23] MEDS ORDERED: INSULIN REGULAR DRIP 100 ML IV PRN (03:54)
[2020-06-23 04:03] LABS: Anisocytosis 1+; Platelet Estimate Normal
[2020-06-23 05:00] LABS: Risk Ratio 2.61; Thyroid Stimulating Hormone 0.678 uIU/ml (0.358-3.74)
[2020-06-23] MEDS ORDERED: SODIUM CHLORIDE 0.9% 1,000 ML IV SCH (06:24)
[2020-06-23] MEDS: CLOPIDOGREL 75 MG TABLET PO SCH (08:25)
[2020-06-23] MEDS: amLODIPine 10 MG TABLET PO SCH (08:25)
[2020-06-23] MEDS: ISOSORBIDE DINITRATE 10 MG TABLET PO SCH ×2 (08:25→20:48)
[2020-06-23] MEDS: PANTOPRAZOLE 40 MG TABLET PO SCH (08:26)
[2020-06-23] MEDS: METOPROLOL SUCCINATE XL 100 MG TABLET PO SCH (08:26)
[2020-06-23 08:35] LABS: Calcium 8.3 MG/DL (8.5-10.1); Osmolality,Calculated 307.4 MOS/KG (273-304)
[2020-06-23] MEDS ORDERED: hydroCHLOROthiazide 25 MG TABLET PO SCH (09:00)
[2020-06-23 10:16] LABS: Calcium 8.8 MG/DL (8.5-10.1); Osmolality,Calculated 305.1 MOS/KG (273-304)
[2020-06-23] MEDS: ASPIRIN 325 MG TABLET PO SCH (11:40)
[2020-06-23] MEDS: INSULIN LISPRO 100 UNIT/ML SUBCUT SCH ×2 (11:41→18:25)
[2020-06-23] MEDS: INSULIN ASPART PROTAMINE/ASPART 70/30 100 UNIT/ML SUBCUT SCH ×2 (14:12→16:51)
[2020-06-23] MEDS ORDERED: SODIUM CHLORIDE 0.45% 1,000 ML IV SCH (18:24)
[2020-06-23] MEDS: ATORVASTATIN 80 MG TABLET PO SCH (20:48)
[2020-06-24] MEDS: INSULIN LISPRO 100 UNIT/ML SUBCUT SCH ×4 (00:51→18:25)
[2020-06-24] MEDS: ENOXAPARIN 30 MG/0.3 ML SYRINGE SUBCUT SCH (02:21)
[2020-06-24] MEDS: SODIUM CHLORIDE 0.9% 1,000 ML IV SCH ×3 (05:23→18:25)
[2020-06-24 06:01] LABS: Basophils % 0.3 % (0.0-0.8); Eosinophils # 0.1 10*3/uL (0.0-0.87); Eosinophils % 1.3 % (0.00-10.9); Hematocrit 31.3 VOL% (35.7-47.0); Immature Granulocytes % 0.5 %; Immature Granulocytes Absolute 0.05 #; Lymphocytes # 1.8 10*3/uL (1.4-4.0); Lymphocytes % 17.3 % (21.3-54.2); Mean Corpuscular HGB Conc 31.9 GM/DL (32-36); Mean Corpuscular Volume 84.1 FL (87-102); Mean Platelet Volume 14.4 FL (9.6-12.0); Monocytes % 6.1 % (1.7-12.7); Neutrophils % 74.5 % (38.7-73.9); Platelet Count 167 T/CUMM (130-400); Red Blood Count 3.72 MC/CUMM (3.8-5.5); Red Cell Distribution Width 15.1 % (9.3-17.3); White Blood Count 10.6 T/CUMM (4-12)
[2020-06-24 06:20] LABS: Alanine Aminotransferase 13 U/L (13-56); Albumin 2.1 G/DL (3.4-5.0); Alkaline Phosphatase 132 U/L (45-117); Aspartate Amino Transferase 17 U/L (0-37); Bilirubin,Indirect 0.3 MG/DL (0.0-1.0); Bilirubin,Total < 0.39 MG/DL (0.2-1.0); Blood Urea Nitrogen 33 MG/DL (7-18); Calcium 8.4 MG/DL (8.5-10.1); Estimated Glom Filtration Rate 28 ML/MIN; Glucose 183 MG/DL (74-106); Osmolality,Calculated 299.7 MOS/KG (273-304); Total Protein 5.7 G/DL (6.4-8.3)
[2020-06-24 07:17] LABS: Platelet Estimate Normal
[2020-06-24 07:18] LABS: Anisocytosis 1+; Burr Cells Few
[2020-06-24] MEDS ORDERED: POTASSIUM CHLORIDE 20 MEQ TABLET PO ONE ×3 (07:59→16:14)
[2020-06-24] MEDS: PANTOPRAZOLE 40 MG TABLET PO SCH (08:34)
[2020-06-24] MEDS: ISOSORBIDE DINITRATE 10 MG TABLET PO SCH ×2 (08:34→21:01)
[2020-06-24] MEDS: CLOPIDOGREL 75 MG TABLET PO SCH (08:34)
[2020-06-24] MEDS: METOPROLOL SUCCINATE XL 100 MG TABLET PO SCH (08:34)
[2020-06-24] MEDS: ASPIRIN 325 MG TABLET PO SCH (08:35)
[2020-06-24] MEDS: INSULIN ASPART PROTAMINE/ASPART 70/30 100 UNIT/ML SUBCUT SCH ×3 (08:35→17:13)
[2020-06-24] MEDS: amLODIPine 10 MG TABLET PO SCH (08:35)
[2020-06-24 11:12] LABS: Troponin I 0.034 NG/ML (0.00-0.045)
[2020-06-24] MEDS ORDERED: INSULIN GLARGINE 100 UNIT/ML SUBCUT ONE (16:13)
[2020-06-24 20:33] LABS: Calcium 8.3 MG/DL (8.5-10.1); Osmolality,Calculated 297.3 MOS/KG (273-304)
[2020-06-24] MEDS: ATORVASTATIN 80 MG TABLET PO SCH (21:01)
[2020-06-25] MEDS: INSULIN LISPRO 100 UNIT/ML SUBCUT SCH ×3 (00:32→12:11)
[2020-06-25] MEDS: ENOXAPARIN 30 MG/0.3 ML SYRINGE SUBCUT SCH (02:19)
[2020-06-25] MEDS: SODIUM CHLORIDE 0.9% 1,000 ML IV SCH (02:19)
[2020-06-25 05:38] LABS: Basophils % 0.3 % (0.0-0.8); Eosinophils # 0.2 10*3/uL (0.0-0.87); Eosinophils % 2.3 % (0.00-10.9); Hematocrit 31.8 VOL% (35.7-47.0); Hemoglobin 9.8 GM/DL (12.0-16.0); Immature Granulocytes % 0.4 %; Immature Granulocytes Absolute 0.04 #; Lymphocytes # 1.9 10*3/uL (1.4-4.0); Lymphocytes % 20.6 % (21.3-54.2); Mean Corpuscular HGB Conc 30.8 GM/DL (32-36); Mean Corpuscular Volume 83.9 FL (87-102); Monocytes % 6.7 % (1.7-12.7); Neutrophils % 69.7 % (38.7-73.9); Platelet Count 155 T/CUMM (130-400); Red Blood Count 3.79 MC/CUMM (3.8-5.5); Red Cell Distribution Width 15.5 % (9.3-17.3)
[2020-06-25 05:50] LABS: Calcium 8.5 MG/DL (8.5-10.1); Osmolality,Calculated 294.1 MOS/KG (273-304)
[2020-06-25 06:35] LABS: Anisocytosis Slight; Burr Cells Few; Platelet Estimate Normal
[2020-06-25] MEDS: ISOSORBIDE DINITRATE 10 MG TABLET PO SCH (09:37)
[2020-06-25] MEDS: ASPIRIN 325 MG TABLET PO SCH (09:37)
[2020-06-25] MEDS: CLOPIDOGREL 75 MG TABLET PO SCH (09:37)
[2020-06-25] MEDS: amLODIPine 10 MG TABLET PO SCH (09:37)
[2020-06-25] MEDS: METOPROLOL SUCCINATE XL 100 MG TABLET PO SCH (09:37)
[2020-06-25] MEDS: INSULIN ASPART PROTAMINE/ASPART 70/30 100 UNIT/ML SUBCUT SCH (09:37)
[2020-06-25] MEDS: PANTOPRAZOLE 40 MG TABLET PO SCH (09:42)
[2020-06-25 12:21] VITALS: BP 115/80
== END 2020-06-25 15:10 | disposition home or self-care (01) | DRG 420 ==
LOC: EDUNIT# → EDBD → N.ED 21:25 → N.EDINP 06-23 01:23 → N.CC 06-23 02:50 → N.TELES 06-23 20:59
PROVIDERS: ADMIT Internal Medicine; ATTEND Internal Medicine

== ENCOUNTER 2020-08-28 15:50 | Observation (INO) ==
[2020-08-28] MEDS ORDERED: ADENOSINE 6 MG/2 ML VIAL IV STA ×2 (16:11)
[2020-08-28] MEDS ORDERED: ADENOSINE 6 MG/2 ML VIAL ONE ×2 (16:12)
[2020-08-28 18:29] LABS: Basophils % 0.2 % (0.0-0.8); Eosinophils % 0.3 % (0.00-10.9); Hemoglobin 10.7 GM/DL (12.0-16.0); Immature Granulocytes % 0.3 %; Immature Granulocytes Absolute 0.03 #; Lymphocytes # 1.2 10*3/uL (1.4-4.0); Lymphocytes % 11.5 % (21.3-54.2); Mean Corpuscular HGB Conc 31.5 GM/DL (32-36); Mean Corpuscular Volume 85.6 FL (87-102); Mean Platelet Volume 13.4 FL (9.6-12.0); Monocytes % 2.8 % (1.7-12.7); Neutrophils % 84.9 % (38.7-73.9); Platelet Count 189 T/CUMM (130-400); Red Blood Count 3.97 MC/CUMM (3.8-5.5); Red Cell Distribution Width 16.4 % (9.3-17.3); White Blood Count 10.2 T/CUMM (4-12)
[2020-08-28 18:44] LABS: Alanine Aminotransferase 14 U/L (13-56); Albumin 2.8 G/DL (3.4-5.0); Alkaline Phosphatase 172 U/L (45-117); Aspartate Amino Transferase 19 U/L (0-37); Bilirubin,Total < 0.39 MG/DL (0.2-1.0); Blood Urea Nitrogen 33 MG/DL (7-18); Calcium 8.4 MG/DL (8.5-10.1); Estimated Glom Filtration Rate 23 ML/MIN; Glucose 355 MG/DL (74-106); Osmolality,Calculated 295.7 MOS/KG (273-304); Total Protein 6.6 G/DL (6.4-8.3)
[2020-08-28 18:52] LABS: Ferritin 13.1 ng/ml (8-252)
[2020-08-28] MEDS ORDERED: ASPIRIN CHEW 81 MG TABLET PO STA (19:00)
[2020-08-28 19:22] LABS: Bacteria,Urine Occasional /HPF (Few); Bilirubin,Urine Negative (Negative); Blood, Urine Negative (Negative); Glucose,Urine (UA) >=500 mg/dL (Negative); Ketones,Urine Negative (Negative); Nitrite,Urine Negative (Negative); Protein,Urine 100 MG/DL; RBC,Urine 2 /HPF (0-4); Squamous Epithelial Cell,Urine Occasional /HPF (0-10); Urine Appearance Slightly Hazy (Clear); Urine Color Straw (Yellow); Urine Urobilinogen < 2.0 EU/DL (0.2-1.0); WBC,Urine 1 /HPF (0-6)
[2020-08-28] MEDS ORDERED: METOPROLOL TARTRATE 5 MG/5 ML VIAL IV STA (19:38)
[2020-08-28] MEDS ORDERED: ONDANSETRON 4 MG/2 ML VIAL IV PRN (19:40)
[2020-08-28] MEDS ORDERED: DEXTROSE 50% 25 GM/50 ML VIAL IV PRN ×2 (19:40)
[2020-08-28] MEDS ORDERED: GLUCAGON 1 MG VIAL IM PRN ×2 (19:40)
[2020-08-28] MEDS ORDERED: NITROGLYCERIN SL 0.4 MG TABLET SL PRN (19:45)
[2020-08-28 19:46] LABS: Barbiturates Screen,Urine Negative (Negative); Benzodiazepines Screen,Urine Negative (Negative); Cannabinoid Screen,Urine Negative (Negative); Opiate Screen,Urine Negative (Negative); Phencyclidine Screen,Urine Negative (Negative)
[2020-08-28] MEDS ORDERED: ENOXAPARIN 120 MG/0.8 ML SYRINGE SUBCUT SCH (20:00)
[2020-08-28] MEDS ORDERED: hydrALAZINE 20 MG/1 ML VIAL IV PRN (20:09)
[2020-08-28] MEDS ORDERED: ATORVASTATIN 80 MG TABLET PO SCH (21:00)
[2020-08-28] MEDS: LACTATED RINGERS 1,000 ML IV SCH (22:35)
[2020-08-28] MEDS: INSULIN LISPRO 100 UNIT/ML SUBCUT SCH (22:36)
[2020-08-28] MEDS: ISOSORBIDE DINITRATE 10 MG TABLET PO SCH (22:37)
[2020-08-28] MEDS: amLODIPine 10 MG TABLET PO SCH (22:37)
[2020-08-29 02:42] LABS: Basophils % 0.4 % (0.0-0.8); Eosinophils # 0.1 10*3/uL (0.0-0.87); Eosinophils % 0.8 % (0.00-10.9); Hematocrit 38.1 VOL% (35.7-47.0); Immature Granulocytes % 0.3 %; Immature Granulocytes Absolute 0.03 #; Lymphocytes # 2.3 10*3/uL (1.4-4.0); Lymphocytes % 24.2 % (21.3-54.2); Mean Corpuscular HGB Conc 31.5 GM/DL (32-36); Mean Corpuscular Volume 84.5 FL (87-102); Mean Platelet Volume 12.6 FL (9.6-12.0); Monocytes % 4.7 % (1.7-12.7); Neutrophils % 69.6 % (38.7-73.9); Platelet Count 195 T/CUMM (130-400); Red Blood Count 4.51 MC/CUMM (3.8-5.5); Red Cell Distribution Width 16.5 % (9.3-17.3); White Blood Count 9.5 T/CUMM (4-12)
[2020-08-29 03:11] LABS: Calcium 9.2 MG/DL (8.5-10.1); Osmolality,Calculated 289.7 MOS/KG (273-304); Risk Ratio 2.24; Thyroid Stimulating Hormone 1.38 uIU/ml (0.358-3.74); VLDL CHOLESTEROL 32.4 MG/DL
[2020-08-29 03:18] LABS: Troponin I 0.949 NG/ML (0.00-0.045)
[2020-08-29] MEDS: LACTATED RINGERS 1,000 ML IV SCH (06:31)
[2020-08-29 07:13] LABS: Troponin I 0.782 NG/ML (0.00-0.045)
[2020-08-29] MEDS ORDERED: ASPIRIN EC 81 MG TABLET PO SCH (09:00)
[2020-08-29] MEDS ORDERED: METOPROLOL SUCCINATE XL 100 MG TABLET PO SCH (09:00)
[2020-08-29] MEDS ORDERED: CLOPIDOGREL 75 MG TABLET PO SCH (09:00)
[2020-08-29] MEDS ORDERED: PANTOPRAZOLE 40 MG TABLET PO SCH (09:00)
[2020-08-29] MEDS: ISOSORBIDE DINITRATE 10 MG TABLET PO SCH (09:20)
[2020-08-29] MEDS: INSULIN LISPRO 100 UNIT/ML SUBCUT SCH ×3 (09:20→16:34)
[2020-08-29] MEDS: amLODIPine 10 MG TABLET PO SCH (09:20)
[2020-08-29 10:15] LABS: Troponin I 0.628 NG/ML (0.00-0.045)
[2020-08-29 13:44] LABS: Troponin I 0.578 NG/ML (0.00-0.045)
[2020-08-29 16:14] VITALS: BP 159/94
== END 2020-08-29 18:11 | disposition home or self-care (01) ==
LOC: N.ED 15:50 → N.TELES 15:50
PROVIDERS: ADMIT Internal Medicine; ATTEND Internal Medicine

== ENCOUNTER 2021-09-13 14:20 | Inpatient (IN) ==
[2021-09-13] MEDS ORDERED: GLUCAGON 1 MG VIAL IM PRN ×2 (17:23→17:28)
[2021-09-13] MEDS ORDERED: DEXTROSE 50% 25 GM/50 ML VIAL IV PRN (17:23)
[2021-09-13] MEDS ORDERED: DEXTROSE 50% 25 GM/50 ML SYRINGE IV PRN (17:28)
[2021-09-13] MEDS ORDERED: ENOXAPARIN 30 MG/0.3 ML SYRINGE SUBCUT SCH (21:00)
[2021-09-13 21:01] LABS: Basophils % 0.4 % (0.0-0.8); Eosinophils # 0.3 10*3/uL (0.0-0.87); Eosinophils % 3.1 % (0.00-10.9); Hematocrit 30.3 VOL% (35.7-47.0); Hemoglobin 9.5 GM/DL (12.0-16.0); Immature Granulocytes % 0.2 %; Immature Granulocytes Absolute 0.02 #; Lymphocytes # 1.7 10*3/uL (1.4-4.0); Lymphocytes % 20.4 % (21.3-54.2); Mean Corpuscular HGB Conc 31.4 GM/DL (32-36); Mean Corpuscular Volume 84.4 FL (87-102); Mean Platelet Volume 12.4 FL (9.6-12.0); Monocytes % 5.3 % (1.7-12.7); Neutrophils % 70.6 % (38.7-73.9); Platelet Count 213 T/CUMM (130-400); Red Blood Count 3.59 MC/CUMM (3.8-5.5); White Blood Count 8.3 T/CUMM (4-12)
[2021-09-13 21:39] LABS: Calcium 9.5 MG/DL (8.5-10.1); Osmolality,Calculated 319.5 MOS/KG (273-304); Potassium 3.8 MMOL/L (3.5-5.1); Thyroid Stimulating Hormone 1.98 uIU/ml (0.358-3.74)
[2021-09-13 22:17] LABS: Hypochromasia Slight; Platelet Estimate Normal
[2021-09-14] MEDS: INSULIN LISPRO 100 UNIT/ML SUBCUT SCH ×5 (00:22→23:49)
[2021-09-14 05:40] LABS: Basophils % 0.5 % (0.0-0.8); Eosinophils # 0.3 10*3/uL (0.0-0.87); Eosinophils % 3.8 % (0.00-10.9); Hematocrit 28.4 VOL% (35.7-47.0); Hemoglobin 8.4 GM/DL (12.0-16.0); Immature Granulocytes % 0.3 %; Immature Granulocytes Absolute 0.02 #; Lymphocytes # 1.7 10*3/uL (1.4-4.0); Mean Corpuscular HGB Conc 29.6 GM/DL (32-36); Mean Platelet Volume 12.7 FL (9.6-12.0); Monocytes % 5.3 % (1.7-12.7); Neutrophils % 68.1 % (38.7-73.9); Platelet Count 181 T/CUMM (130-400); Red Blood Count 3.12 MC/CUMM (3.8-5.5); Red Cell Distribution Width 14.1 % (9.3-17.3); White Blood Count 7.7 T/CUMM (4-12)
[2021-09-14 06:21] LABS: Calcium 9.6 MG/DL (8.5-10.1); Osmolality,Calculated 316.8 MOS/KG (273-304); Potassium 3.9 MMOL/L (3.5-5.1)
[2021-09-14] MEDS: PANTOPRAZOLE 40 MG TABLET PO SCH (08:52)
[2021-09-14 09:52] LABS: Hepatitis B Core IgM Quant 0.12 Index; Hepatitis B Surface Ag Quant < 0.10 Index; Hepatitis B Surface Ag Result Non-Reactive (NonReactive); Hepatitis C Virus Ab Quant 0.05 Index; Hepatitis C Virus Ab Result Non-Reactive (NonReactive)
[2021-09-14] MEDS ORDERED: LIDOCAINE 1%/EPI INJ 20 ML VIAL ONE (10:35)
[2021-09-14] MEDS ORDERED: HEPARIN 5,000 UNIT/1 ML VIAL ONE (10:35)
[2021-09-14] MEDS ORDERED: BUPIVACAINE MPF 0.25% 30 ML VIAL ONE (10:35)
[2021-09-14] MEDS ORDERED: MIDAZOLAM 2 MG/2 ML VIAL ONE (10:37)
[2021-09-14] MEDS ORDERED: fentaNYL 100 MCG/2 ML VIAL ONE (10:37)
[2021-09-14] MEDS ORDERED: propofoL 200 MG/20 ML VIAL IV ONE (10:37)
[2021-09-14] MEDS ORDERED: LIDOCAINE 2% 5 ML VIAL ONE (10:37)
[2021-09-14] MEDS ORDERED: SODIUM CHLORIDE 0.9% 250 ML IV SCH (11:30)
[2021-09-14] MEDS ORDERED: ESMOLOL 100 MG/10 ML VIAL IV ONE ×2 (12:33→12:34)
[2021-09-14] MEDS ORDERED: HEPARIN 10,000 UNIT/10 ML VIAL IV PRN (13:25)
[2021-09-14] MEDS ORDERED: NITROGLYCERIN SL 0.4 MG TABLET SL PRN (14:43)
[2021-09-14] MEDS: ISOSORBIDE DINITRATE 10 MG TABLET PO SCH (21:23)
[2021-09-14] MEDS: ATORVASTATIN 80 MG TABLET PO SCH (21:23)
[2021-09-15] MEDS: hydrALAZINE 20 MG/1 ML VIAL IV PRN ×2 (00:26→17:35)
[2021-09-15 04:57] LABS: Risk Ratio 2.66; VLDL Cholesterol 17.2 MG/DL
[2021-09-15 08:40] LABS: Basophils % 0.3 % (0.0-0.8); Eosinophils # 0.1 10*3/uL (0.0-0.87); Eosinophils % 1.1 % (0.00-10.9); Hematocrit 27.9 VOL% (35.7-47.0); Immature Granulocytes % 0.3 %; Immature Granulocytes Absolute 0.02 #; Lymphocytes # 0.9 10*3/uL (1.4-4.0); Lymphocytes % 12.2 % (21.3-54.2); Mean Corpuscular HGB Conc 32.3 GM/DL (32-36); Mean Corpuscular Volume 82.8 FL (87-102); Mean Platelet Volume 13.4 FL (9.6-12.0); Monocytes % 5.9 % (1.7-12.7); Neutrophils % 80.2 % (38.7-73.9); Platelet Count 198 T/CUMM (130-400); Red Blood Count 3.37 MC/CUMM (3.8-5.5); Red Cell Distribution Width 14.1 % (9.3-17.3); White Blood Count 7.3 T/CUMM (4-12)
[2021-09-15] MEDS: PANTOPRAZOLE 40 MG TABLET PO SCH (08:41)
[2021-09-15] MEDS: amLODIPine 10 MG TABLET PO SCH (08:41)
[2021-09-15] MEDS: ISOSORBIDE DINITRATE 10 MG TABLET PO SCH ×2 (08:41→20:57)
[2021-09-15] MEDS: INSULIN LISPRO 100 UNIT/ML SUBCUT SCH ×4 (08:43→20:57)
[2021-09-15 09:04] LABS: Platelet Estimate Normal
[2021-09-15 09:05] LABS: Anisocytosis 1+
[2021-09-15] MEDS ORDERED: EPOETIN ALFA-EPBX 2,000 UNIT/ML VIAL IV PRN (10:41)
[2021-09-15 11:04] LABS: % Iron Saturation 13.9 % (18-50); Ferritin 52.7 ng/mL (8-252)
[2021-09-15] MEDS: ATORVASTATIN 80 MG TABLET PO SCH (20:57)
[2021-09-16] MEDS: hydrALAZINE 20 MG/1 ML VIAL IV PRN ×2 (01:10→16:46)
[2021-09-16 05:22] LABS: Basophils % 0.4 % (0.0-0.8); Eosinophils % 0.1 % (0.00-10.9); Hematocrit 31.7 VOL% (35.7-47.0); Immature Granulocytes % 0.4 %; Immature Granulocytes Absolute 0.04 #; Lymphocytes # 1.1 10*3/uL (1.4-4.0); Lymphocytes % 11.2 % (21.3-54.2); Mean Corpuscular HGB Conc 31.5 GM/DL (32-36); Mean Platelet Volume 13.1 FL (9.6-12.0); Monocytes % 7.5 % (1.7-12.7); Neutrophils % 80.4 % (38.7-73.9); Platelet Count 221 T/CUMM (130-400); Red Blood Count 3.73 MC/CUMM (3.8-5.5); Red Cell Distribution Width 14.4 % (9.3-17.3); White Blood Count 10.2 T/CUMM (4-12)
[2021-09-16 05:42] LABS: Calcium 11.1 MG/DL (8.5-10.1); Osmolality,Calculated 282.4 MOS/KG (273-304); Potassium 3.6 MMOL/L (3.5-5.1)
[2021-09-16 06:04] LABS: Platelet Estimate Normal
[2021-09-16 06:05] LABS: Anisocytosis 1+; Burr Cells Few; Hypochromasia Slight; Ovalocytes Few
[2021-09-16] MEDS: PANTOPRAZOLE 40 MG TABLET PO SCH ×2 (08:51→10:25)
[2021-09-16] MEDS: HEPARIN 5,000 UNIT/1 ML VIAL SUBCUT SCH ×2 (08:58→19:55)
[2021-09-16] MEDS: ONDANSETRON 4 MG/2 ML VIAL IV PRN ×3 (08:58→16:45)
[2021-09-16] MEDS: INSULIN LISPRO 100 UNIT/ML SUBCUT SCH ×4 (09:02→19:55)
[2021-09-16] MEDS: METOPROLOL SUCCINATE XL 100 MG TABLET PO SCH ×2 (09:55→10:25)
[2021-09-16] MEDS: amLODIPine 10 MG TABLET PO SCH ×2 (09:55→10:25)
[2021-09-16] MEDS: ISOSORBIDE DINITRATE 10 MG TABLET PO SCH ×3 (09:55→19:55)
[2021-09-16] MEDS: FERROUS SULFATE 325 MG TABLET PO SCH ×2 (09:55→10:25)
[2021-09-16] MEDS ORDERED: ASPIRIN CHEW 81 MG TABLET PO ONE (10:10)
[2021-09-16] MEDS ORDERED: METOPROLOL TARTRATE 5 MG/5 ML VIAL IV PRN (11:21)
[2021-09-16] MEDS ORDERED: SODIUM CHLORIDE 0.9% 500 ML IV SCH (14:30)
[2021-09-16] MEDS ORDERED: PROMETHAZINE 25 MG/1 ML VIAL IM PRN (18:02)
[2021-09-16] MEDS: ATORVASTATIN 80 MG TABLET PO SCH (19:55)
[2021-09-16] MEDS ORDERED: hydrALAZINE 10 MG TABLET PO SCH (21:00)
[2021-09-17] MEDS: hydrALAZINE 20 MG/1 ML VIAL IV PRN (01:50)
[2021-09-17 06:26] LABS: Basophils % 0.2 % (0.0-0.8); Eosinophils % 0.1 % (0.00-10.9); Hematocrit 31.1 VOL% (35.7-47.0); Hemoglobin 9.8 GM/DL (12.0-16.0); Immature Granulocytes % 0.5 %; Immature Granulocytes Absolute 0.06 #; Lymphocytes # 1.3 10*3/uL (1.4-4.0); Lymphocytes % 10.1 % (21.3-54.2); Mean Corpuscular HGB Conc 31.5 GM/DL (32-36); Mean Platelet Volume 12.9 FL (9.6-12.0); Monocytes % 5.5 % (1.7-12.7); Neutrophils % 83.6 % (38.7-73.9); Platelet Count 224 T/CUMM (130-400); Red Blood Count 3.66 MC/CUMM (3.8-5.5); Red Cell Distribution Width 14.5 % (9.3-17.3); White Blood Count 12.9 T/CUMM (4-12)
[2021-09-17] MEDS: ISOSORBIDE DINITRATE 10 MG TABLET PO SCH ×3 (07:29→21:51)
[2021-09-17] MEDS: PANTOPRAZOLE 40 MG TABLET PO SCH ×2 (07:29→09:48)
[2021-09-17] MEDS: METOPROLOL SUCCINATE XL 50 MG TABLET PO SCH ×2 (07:29→09:48)
[2021-09-17] MEDS: amLODIPine 10 MG TABLET PO SCH ×2 (07:29→09:47)
[2021-09-17] MEDS: ASPIRIN EC 81 MG TABLET PO SCH ×2 (07:30→09:45)
[2021-09-17] MEDS: FERROUS SULFATE 325 MG TABLET PO SCH ×2 (07:30→09:46)
[2021-09-17 07:35] LABS: Calcium 10.1 MG/DL (8.5-10.1); Osmolality,Calculated 289.2 MOS/KG (273-304); Potassium 3.9 MMOL/L (3.5-5.1)
[2021-09-17] MEDS: HEPARIN 5,000 UNIT/1 ML VIAL SUBCUT SCH ×3 (07:39→21:50)
[2021-09-17] MEDS: ONDANSETRON 4 MG/2 ML VIAL IV PRN (07:39)
[2021-09-17] MEDS: INSULIN LISPRO 100 UNIT/ML SUBCUT SCH ×4 (07:39→21:51)
[2021-09-17] MEDS: DILTIAZEM 30 MG TABLET PO SCH ×3 (13:11→21:51)
[2021-09-17] MEDS: ATORVASTATIN 80 MG TABLET PO SCH (21:50)
[2021-09-18 06:44] LABS: Basophils % 0.3 % (0.0-0.8); Eosinophils # 0.1 10*3/uL (0.0-0.87); Eosinophils % 0.5 % (0.00-10.9); Hematocrit 30.2 VOL% (35.7-47.0); Hemoglobin 9.3 GM/DL (12.0-16.0); Immature Granulocytes % 0.6 %; Immature Granulocytes Absolute 0.08 #; Lymphocytes # 2.1 10*3/uL (1.4-4.0); Lymphocytes % 16.8 % (21.3-54.2); Mean Corpuscular HGB Conc 30.8 GM/DL (32-36); Mean Corpuscular Volume 85.6 FL (87-102); Mean Platelet Volume 12.4 FL (9.6-12.0); Monocytes % 6.4 % (1.7-12.7); Neutrophils % 75.4 % (38.7-73.9); Platelet Count 218 T/CUMM (130-400); Red Blood Count 3.53 MC/CUMM (3.8-5.5); Red Cell Distribution Width 14.4 % (9.3-17.3); White Blood Count 12.7 T/CUMM (4-12)
[2021-09-18 06:56] LABS: Calcium 10.1 MG/DL (8.5-10.1); Osmolality,Calculated 277.7 MOS/KG (273-304)
[2021-09-18] MEDS: HEPARIN 5,000 UNIT/1 ML VIAL SUBCUT SCH ×2 (09:03→21:50)
[2021-09-18] MEDS: DILTIAZEM 30 MG TABLET PO SCH ×4 (09:04→21:50)
[2021-09-18] MEDS: ASPIRIN EC 81 MG TABLET PO SCH (09:04)
[2021-09-18] MEDS: INSULIN LISPRO 100 UNIT/ML SUBCUT SCH ×4 (09:04→21:51)
[2021-09-18] MEDS: ISOSORBIDE DINITRATE 10 MG TABLET PO SCH ×2 (09:04→21:50)
[2021-09-18] MEDS: METOPROLOL SUCCINATE XL 50 MG TABLET PO SCH (09:04)
[2021-09-18] MEDS: PANTOPRAZOLE 40 MG TABLET PO SCH (09:05)
[2021-09-18] MEDS: FERROUS SULFATE 325 MG TABLET PO SCH (09:06)
[2021-09-18] MEDS: hydrALAZINE 20 MG/1 ML VIAL IV PRN (15:07)
[2021-09-18] MEDS: ATORVASTATIN 80 MG TABLET PO SCH (21:50)
[2021-09-19 05:59] LABS: Basophils % 0.4 % (0.0-0.8); Eosinophils # 0.1 10*3/uL (0.0-0.87); Hematocrit 31.1 VOL% (35.7-47.0); Hemoglobin 9.5 GM/DL (12.0-16.0); Immature Granulocytes % 0.5 %; Immature Granulocytes Absolute 0.05 #; Lymphocytes % 18.9 % (21.3-54.2); Mean Corpuscular HGB Conc 30.5 GM/DL (32-36); Mean Corpuscular Volume 84.5 FL (87-102); Monocytes % 6.7 % (1.7-12.7); Neutrophils % 72.5 % (38.7-73.9); Platelet Count 238 T/CUMM (130-400); Red Blood Count 3.68 MC/CUMM (3.8-5.5); Red Cell Distribution Width 14.1 % (9.3-17.3); White Blood Count 10.7 T/CUMM (4-12)
[2021-09-19 06:29] LABS: Calcium 9.7 MG/DL (8.5-10.1); Osmolality,Calculated 281.4 MOS/KG (273-304); Potassium 3.7 MMOL/L (3.5-5.1)
[2021-09-19] MEDS: ASPIRIN EC 81 MG TABLET PO SCH (10:40)
[2021-09-19] MEDS: INSULIN LISPRO 100 UNIT/ML SUBCUT SCH (10:40)
[2021-09-19] MEDS: ISOSORBIDE DINITRATE 10 MG TABLET PO SCH (10:40)
[2021-09-19] MEDS: PANTOPRAZOLE 40 MG TABLET PO SCH (10:41)
[2021-09-19] MEDS: FERROUS SULFATE 325 MG TABLET PO SCH (10:41)
[2021-09-19] MEDS: METOPROLOL SUCCINATE XL 50 MG TABLET PO SCH (10:41)
[2021-09-19] MEDS: DILTIAZEM 30 MG TABLET PO SCH (10:41)
[2021-09-19] MEDS: HEPARIN 5,000 UNIT/1 ML VIAL SUBCUT SCH (10:45)
[2021-09-19 11:57] VITALS: BP 141/100
== END 2021-09-19 13:25 | disposition home or self-care (01) | DRG 470 ==
LOC: N.5E → SUATTDRO 16:34
PROVIDERS: ADMIT Internal Medicine; ATTEND Internal Medicine